=== PATIENT | female | born 1955 | race Caucasian/White ===

== ENCOUNTER 2017-03-13 21:25 | Observation (INO) ==
--- NOTE | 2017-03-13 21:34 | Emergency Department Note ---
Disposition Clinical Impression: Hyperglycemia, History of TIAs TIA (transient ischemic attack) Qualifiers: Transient cerebral ischemia type: unspecified Qualified Code(s): G45.9 - Transient cerebral ischemic attack, unspecified Disposition: Admitted As Inpatient Condition: Fair Neuro HPI - General Chief Complaint: ED Neuro Symptoms/Deficit Stated Complaint: poss stroke Source: patient Mode of arrival: EMS Limitations: no limitations Nursing Notes Reviewed: Yes Vital Signs Reviewed: Yes - History of Present Illness HPI Narrative: 62-year-old female history of TIA, hypertension, diabetes presents for evaluation of difficulty speaking possible stroke alert. Patient's last known well was 8:30 this evening verified by family, but the family states that she was having intermittent symptoms during the day. States that she was having difficult time speaking at bedtime. Family states that she kept repeating a certain date in her head. When asked specific questions would not answer questions appropriately. No other notable focal neurologic deficits. Family is unclear if the patient had aspirin earlier today. Patient does note a slight left temporal headache. Patient's symptoms appear to be improving. Denies any upper and lower leg weakness. Cranial 2 through 12 are intact. 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 Symptom Onset Unknown: No - Related Data Home Medications: Home Medications Medication Instructions Recorded Confirmed Alprazolam [Xanax 0.5 MG Tablet] 0.5 mg PO TID 06/26/16 06/26/16 Canagliflozin [Invokana] 100 mg PO DAILY 06/26/16 06/26/16 Clopidogrel [Plavix] 75 mg PO DAILY 06/26/16 06/26/16 Esomeprazole Magnesium [Nexium] 40 mg PO DAILY 06/26/16 06/26/16 Lisinopril [Zestril] 10 mg PO DAILY 06/26/16 06/26/16 Loratadine [Claritin] 10 mg PO DAILY 06/26/16 06/26/16 Metformin [Glucophage] 500 mg PO BIDWM 06/26/16 06/26/16 MetroNIDAZOLE [Metrogel] 1 appl TP DAILY 06/26/16 06/26/16 Paroxetine HCl 20 mg PO DAILY 06/26/16 06/26/16 Rosuvastatin [Crestor] 40 mg PO DAILY 06/26/16 06/26/16 Triamterene/HCTZ 37.5/25mg 1 each PO DAILY 06/26/16 06/26/16 [Dyazide] Allergies/Adverse Reactions: Allergies Allergy/AdvReac Type Severity Reaction Status Date / Time sulfacetamide Allergy Swelling Verified 03/13/17 21:29 [From Sulfamide] of the Eye All systems ED: reviewed and negative except as stated. Constitutional: Reports: as per HPI. Denies: fever Eyes: Reports: as per HPI ENT ED: Reports: as per HPI Cardiovascular: Reports: as per HPI. Denies: chest pain Respiratory: Reports: as per HPI. Denies: dyspnea Gastrointestinal: Reports: as per HPI. Denies: nausea, vomiting Genitourinary: Reports: as per HPI Musculoskeletal: Reports: as per HPI Integumentary: Reports: as per HPI Neurological: Reports: as per HPI, headache, confusion. 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 Absent: nystagmus - ENT ENT exam: normal exam, mucous membranes moist - Neck Neck exam: Present: normal inspection, trachea midline - Chest Chest inspection: Present: normal inspection, symmetric chest wall rise. Absent : tenderness - Respiratory Respiratory exam: Present: normal lung sounds bilaterally. Absent: respiratory distress - Cardiovascular Cardiovascular exam: Present: regular rate, normal rhythm - Abdominal Exam Abdominal exam: Present: soft, Non-Tender. Absent: distention, guarding, rebound - Extremities Exam Extremities exam: Present: normal inspection. Absent: pedal edema - Back Exam Back exam: Present: normal inspection - Neurological Exam Neurological exam: Present: alert, oriented X3, CN II-XII intact - Expanded Neurological Exam Patient oriented to: Present: person, place, time Speech: Present: fluid speech Cranial nerves: EOM function (II, III, IV, ): Normal, facial sensation (V): Normal, facial palsy (VII): Normal, spinal accessory function (XI): Normal, tongue deviation (XII): Normal Motor strength - LUE: 5/5 Motor strength - RUE: 5/5 Motor strength - LLE: 5/5 Motor strength - RLE: 5/5 Upper motor neuron exam: pronator drift: Absent bilaterally Sensory exam upper extremity: light touch: Normal Sensory exam lower extremity: light touch: Normal Coma Scale Eye Opening: Spontaneous Coma Scale Motor Response: Obeys Commands Coma Scale Verbal Response: Oriented Coma Scale Total: 15 - Skin Skin exam: Present: warm, dry, intact, normal color Course Course Narrative: Patient seen and examined initially upon arrival. Patient's initially patient last known well was 2030 this evening. However family states that have intermittent symptoms throughout the day. Family scribe symptoms that the patient cannot find her words are replacing certain words. Patient's symptoms appear to be resolving during the ED stay. Patient's NIH score is a 2 or 3 based on her expressive aphasia and describing the picture. Patient's grandmother 2-12 are intact. Stroke alert was initially called. Patient had a negative head CT. Spoke with neurology at [facility] states that the patient's last known well was not defined and is not a candidate for thrombolytics. This information was discussed to the patient as well as the patient's family at bedside. Patient will need a stroke workup. - Consultations Consultation #1: Spoke with Dr. Lozano, Neruologist at [facility]. States that the patient is not a tpa candidate since the patient's last known well is not well defined as the patient Time: 21:55 Vital Signs Temperature 97.8 F 03/13/17 21:29 Pulse Rate 80 03/13/17 21:29 Respiratory Rate 20 03/13/17 21:29 Blood Pressure 143/76 03/13/17 21:29 O2 Sat by Pulse Oximetry 100 03/13/17 21:29 Temperature 97.8 F 03/13/17 21:29 Pulse Rate 80 03/13/17 23:46 Respiratory Rate 20 03/13/17 23:46 Blood Pressure 130/80 03/13/17 23:46 O2 Sat by Pulse Oximetry 97 03/13/17 23:46 Oxygen Delivery Oxygen Delivery Room Air Neuro Symptoms/Deficit - MDM Narrative Medical decision making narrative: 62-year-old female presents for evaluation for a stroke alert. Patient's initial last and most thought to be around 2030. Family at bedside states that the patient's symptoms been intermittent throughout the day and there are described more as an expressive aphasia. Patient has a history of TIAs and carotid stenosis in the past. Patient on Plavix. Patient has no history of GI bleed or any active bleeding. Spoke with neurology at [facility] states the patient is not a TPA candidate due to time of onset. Patient's NIH score is low 2-3. This information was discussed with the patient's family as well as the patient at bedside. All questions were answered at that time. Patient will be admitted to the hospital service for further stroke evaluation. - Lab Data Lab results reviewed: Yes I reviewed the patient's lab results. Result diagrams: 03/13/17 21:40 03/13/17 21:40 Lab Results 03/13/17 03/13/17 03/13/17 Range/Units 21:30 21:40 21:40 WBC 10.9 (4.3-11.1) K/mcL RBC 4.82 (3.82-4.97) M/mcL Hgb 13.7 (11.5-15.4) g/dL Hct 41.7 (35.3-44.9) % MCV 86.5 (83.0-100.0) fL MCH 28.4 (28.0-33.3) pg MCHC 32.9 (31.6-35.5) g/dL RDW 12.9 (11.5-14.5) % Plt Count 337 (140-400) K/mcL MPV 10.2 (9.4-12.4) fL Immature Gran % 0.3 (0-4) % Seg Neutrophils % 58.8 % Lymphocytes % 29.5 % Monocytes % 9.2 % Eosinophils % 1.4 % Basophils % 0.8 % Neutrophils # 6.4 (1.6-8.9) K/mcL Lymphocytes # 3.2 (0.6-4.6) K/mcL Monocytes # 1.0 (0.0-1.3) K/mcL Eosinophils # 0.2 (0.0-0.6) K/mcL Basophils # 0.1 (0.0-0.2) K/mcL Immature Plt Fraction 4.9 (1.1-6.1) % PT 10.0 (9.4-12.1) Seconds INR 0.9 APTT 30.8 (26.0-36.0) Seconds Sodium (136-145) mEq/L Potassium (3.5-4.5) mEq/L Chloride (98-109) mEq/L Carbon Dioxide (19-29) mEq/L BUN (7-20) mg/dL Creatinine (0.57-1.11) mg/dL Est GFR ( Amer) (> 60) Est GFR (Non-Af Amer) (> 60) BUN/Creatinine Ratio (6-26) Glucose (70-99) mg/dL POC Glucose 123 H (58-89) Calculated Osmolality (280-300) Calcium (8.6-10.8) mg/dL Troponin I (0-0.03) ng/mL 03/13/17 03/13/17 Range/Units 21:40 21:40 WBC (4.3-11.1) K/mcL RBC (3.82-4.97) M/mcL Hgb (11.5-15.4) g/dL Hct (35.3-44.9) % MCV (83.0-100.0) fL MCH (28.0-33.3) pg MCHC (31.6-35.5) g/dL RDW (11.5-14.5) % Plt Count (140-400) K/mcL MPV (9.4-12.4) fL Immature Gran % (0-4) % Seg Neutrophils % % Lymphocytes % % Monocytes % % Eosinophils % % Basophils % % Neutrophils # (1.6-8.9) K/mcL Lymphocytes # (0.6-4.6) K/mcL Monocytes # (0.0-1.3) K/mcL Eosinophils # (0.0-0.6) K/mcL Basophils # (0.0-0.2) K/mcL Immature Plt Fraction (1.1-6.1) % PT (9.4-12.1) Seconds INR APTT (26.0-36.0) Seconds Sodium 139 (136-145) mEq/L Potassium 3.7 (3.5-4.5) mEq/L Chloride 104 (98-109) mEq/L Carbon Dioxide 28 (19-29) mEq/L BUN 15 (7-20) mg/dL Creatinine 0.78 (0.57-1.11) mg/dL Est GFR ( Amer) > 60 (> 60) Est GFR (Non-Af Amer) > 60 (> 60) BUN/Creatinine Ratio 19 (6-26) Glucose 95 (70-99) mg/dL POC Glucose (58-89) Calculated Osmolality 289 (280-300) Calcium 9.6 (8.6-10.8) mg/dL Troponin I 0.00 (0-0.03) ng/mL - Radiology Data Radiology results reviewed: Yes I reviewed the patient's radiology results. Head CT 03/13/17 21:31 IMPRESSION: No acute intracranial abnormality. Findings were discussed with Dr. Ruth Lemus of the [facility] emergency department at 9:48 pm on 03/13/2017. D/ / Erik Delgado MD / Erik Delgado MD Interpreting Provider: Erik Delgado MD - EKG Data EKG shows normal: sinus rhythm Rate: normal Rhythm: NSR [place]/QRS: normal P Waves: other (inversion in V1-V2) Interpretation: unchanged when compared to prior tracing (date) (2015), nonspecific ST-T wave changes NIH Stroke Scale - Level of Consciousness LOC: Alert - LOC Questions LOC Questions: Answers both correctly - LOC Commands LOC Commands: Performs both correctly - Best Gaze Best Gaze: Normal - Visual Visual: No visual loss - Facial Palsy Facial Palsy: Normal - Motor Arms Motor Arm-Left: No drift for 10 seconds Motor Arm-Right: No drift for 10 seconds - Motor Legs Motor Leg-Left: No drift for 5 seconds Motor Leg-Right: No drift for 5 seconds - Limb Ataxia Limb Ataxia: Absent of affected limb too weak to perform exam - Sensory Sensory: Normal - Best Language Best Language: Severe aphasia. Examiner CAN NOT identify pictures from response - Dysarthria Dysarthria: Normal - Extinction and Inattention Extinction and Inattention: Normal - NIHSS Total Score NIHSS Total Score: 2 TPA Checklist - Eligibilty for IV tPA 1. LKW equal to or less than 4.5 hours be before treatment: No 2. Clinical diagnosis of ischemic stroke causing deficit: Yes 3. Age 18 years or older: Yes - Contraindications 4. Evidence of intracranial hemorrhage on pretreatment CT: No 5. Presentation suggests subarachnoid hem, even if CT normal: No 6. CT shows multilobar infarction: No 7. History of intracranial hemorrhage: No 8. Known neoplasm, arteriovenous malformation, or aneurysm: No 9. Significant head trauma (w/ LOC) or CVA in last 3 months: No 10. Intracranial or intraspinal surgery in 3 months: No 11. Arterial puncture at non-compressable site/LP in 7 days: No 12. BP elevated (systolic > 185 or diastolic > 110): No 13. Abnormal Blood Glucose (<50 or >400mg/dl): No 14. Active internal bleeding: No 15. Known bleeding risk (including; not limited to 16-18): No 16. Heparin/argatroban/bivalirudin w/in 48hrs & PTT > normal: No 17. Platelet count less than 100,000/MM3: No 18. Current or recent use of anticoagualants (see protocol): No - Relative Contraindications 19. Only minor or rapidly improving stroke symptoms: Yes 20. Seizure at onset w/ postictal residual neuro impairments: No 21. : No 22. Current/recent use Effient (7 days) or Brilinta (5 days): No 23. Major surgery or serious truama in last 14 days: No 24. GI or urinary tract hemorrhage in last 21 days: No 25. Myocardial infarction within last 3 months: No - LKW: 3-4.5 hrs Add. Contraindications Patient/family understanding: The patient/family members have been counseled and understood the risk, benefit , and alternatives of treatment. Attestation Statement - Attestation Attestation: I examined this patient and my medical decision-making was reviewed with the SKIP TRACER/PA/Advanced Practice Nurse/Resident Physician. I agree with the documented findings, disposition and treatment plan as described except to the extent set forth below. Patient to the emergency department with a chief complaint of difficulty speaking. Patient has having trouble finding her words. Denies any weakness numbness or tingling anywhere. Symptoms were waxing and waning throughout the day. Stop bad 8:30 tonight. Improving but not completely resolved. On examination she is awake and alert pleasant conversant in bed. She is having difficulty saying her words. She keeps saying dog instead of Dr. Howe. Stroke alert was called. Discussed with neurology at [facility] does not feel she is a TPA candidate secondary to waxing and waning symptoms and unclear of when her last known well was. She is admitted to medicine for further stroke workup. 30 minutes of critical care exclusive of separately billable procedures.
[2017-03-13 21:47] LABS: Basophils # 0.1 K/mcL (0.0-0.2); Basophils % 0.8 %; Eosinophils # 0.2 K/mcL (0.0-0.6); Eosinophils % 1.4 %; Hematocrit 41.7 % (35.3-44.9); Hemoglobin 13.7 g/dL (11.5-15.4); Immature Granulocytes % 0.3 % (0-4); Immature Platelets 4.9 % (1.1-6.1); Lymphocytes # 3.2 K/mcL (0.6-4.6); Lymphocytes % 29.5 %; Mean Corpuscular HGB Conc 32.9 g/dL (31.6-35.5); Mean Corpuscular Hemoglobin 28.4 pg (28.0-33.3); Mean Corpuscular Volume 86.5 fL (83.0-100.0); Mean Platelet Volume 10.2 fL (9.4-12.4); Monocytes % 9.2 %; Neutrophils # 6.4 K/mcL (1.6-8.9); Red Blood Count 4.82 M/mcL (3.82-4.97); Red Cell Distribution Width 12.9 % (11.5-14.5); Segmented Neutrophils % 58.8 %
[2017-03-13 21:50] LABS: Platelet Count 337 K/mcL (140-400)
[2017-03-13 21:51] LABS: INR 0.9
[2017-03-13 21:53] LABS: Activated Partial Thrombo Time 30.8 Seconds (26.0-36.0)
[2017-03-13 21:57] LABS: BUN/Creatinine Ratio 19 (6-26); Blood Urea Nitrogen 15 mg/dL (7-20); Calcium 9.6 mg/dL (8.6-10.8); Carbon Dioxide 28 mEq/L (19-29); Chloride 104 mEq/L (98-109); Glucose 95 mg/dL (70-99); Osmolality,Calculated 289 (280-300); Potassium 3.7 mEq/L (3.5-4.5); Sodium 139 mEq/L (136-145); eGFR For African Americans > 60 (> 60); eGFR For Non-African Americans > 60 (> 60)
[2017-03-13] MEDS ORDERED: Ondansetron 4 MG/2 ML VIAL IV ONE (22:00)
[2017-03-13] MEDS ORDERED: Aspirin 81 MG TAB.CHEW PO ONE (22:07)
--- NOTE | 2017-03-13 23:22 | Event Note ---
Date of Encounter: 03/13/17 Time of Encounter: 23:20 1. Expressive aphasia worrisome for TIA/acuta CVA Continue aspirin and continue Plavix Order brain MRI, carotid ultrasound and echocardiogram Order neurology consult 2. History of left carotid stenosis 3. Diabetes type 2 not insulin-dependent, continue insulin sliding scale 4. Hypertension, allow permissive hypertension for now Note to follow written by STICKER ON Vaishali Najera The patient will be admitted as inpatient, expected statement to midnight. Full code. Time spent on this admission 40 minutes. High risk for CVA
[2017-03-13] MEDS ORDERED: Naloxone 0.4 MG/ML INJ IVP PRN (23:29)
[2017-03-13] MEDS ORDERED: Ondansetron 4 MG/2 ML VIAL IVP PRN (23:29)
[2017-03-13] MEDS ORDERED: Dextrose Gel 15 GM PO PRN ×2 (23:38)
[2017-03-13] MEDS ORDERED: D5% in Water 1,000 ML IVC PRN (23:38)
[2017-03-13] MEDS ORDERED: *HR* Dextrose 50 % in Water (Syg) 50 ML SYRINGE IVP PRN (23:38)
--- NOTE | 2017-03-13 23:51 | Internal Med History&Physical ---
Date of Encounter: 03/14/17 Time of Encounter: 23:51 Assessment and Plan (1) TIA (transient ischemic attack) Current visit: Yes Status: Suspected 1 patient presented with intermittent expressive aphasia that day worsening this evening approximately 8:30pm. Time she had presented to the ER symptoms were resolving. CT of head was negative lab work was unremarkable. We will continue with neuro checks 2 continuous cardiac monitoring 3 we will obtain cardiac echo 4 we will obtain MRI of head 5 carotid Dopplers- duplex 07/07- proximal ICA had 80-90% stenosis versus occlusion 6 we will continue with aspirin and Plavix statin 7 consult neurology 8 we will allow permissive hypertension 9 bedside swallow Qualifiers: Transient cerebral ischemia type: unspecified Qualified Code(s): G45.9 - Transient cerebral ischemic attack, unspecified (2) HTN (hypertension) Current visit: Yes Status: Chronic 1 presently controlled will continue with home medications, displaying some TIA sx we will allow permissive HTN Qualifiers: Hypertension type: essential hypertension Qualified Code(s): I10 - Essential (primary) hypertension (3) Diabetes Current visit: No Status: Chronic 1 she is on oral antidiabetic acuu check AC/HS with SSI insulin coverage Qualifiers: Diabetes mellitus type: type 2 Diabetes mellitus complication status: without complication Diabetes mellitus half-way insulin use: without half-way use Qualified Code(s): E11.9 - Type 2 diabetes mellitus without complications (4) DVT prophylaxis Current visit: No Status: Acute 1 KUSHAL arroyo Internal Medicine - H&P: HPI Chief complaint: TIA sx Admitted From: Emergency Dept Plans for Post Hospital Care: Home History of present illness: Ms. Clemens is a 62 year old female past medical history of hypertension diabetes TIA hyperlipidemia. According to family patient has been experiencing inability to find her words throughout the day, approximately around 8:30 family states that patient was experiencing difficulty speaking, using inappropriate words to describe items, garbled speech, repetitive speech, lipsmacking. Was no facial droop LOC,change in vision , difficulty swallowing or walking She presented to the ER with the above complaints. ER records indicated that patient's symptoms were improving upon arrival, there were no notable focal neurological deficits NIH was [address] was negative stroke alert was initiated in the ER physician did speak to neurology at [facility] who stated that the patient's last known well was not defined as not candidate for thrombolytics. She was admitted for further workup evaluation. Assessment patient is alert and appropriate following simple commands she does not appear to be in any distress. She complains of left temporal headache which is intermittent, throbbing 4/ 10. Cranial nerves II through XII are intact sinus rhythm on monitor she is hemodynamically stable I reveiwed this coding quality analyst with Dr Bernard who agrees with plan Past Med Surg Social Fam HX - Past Medical History Medical history: diabetes, hyperlipidemia, hypertension, other Psychiatric history: no psych history - Social History Smoking Status: Former smoker Smokeless Tobacco Status: No Alcohol use: none Drug use: none - Family History Mother Hx Family Cardiac Disorders: Yes Father Living Status: Hx Family Cancer: Yes Internal Medicine - H&P: Meds Alprazolam [Xanax 0.5 MG Tablet] 0.5 mg PO TID 06/26/16 [History] Canagliflozin [Invokana] 100 mg PO DAILY 06/26/16 [History] Clopidogrel [Plavix] 75 mg PO DAILY 06/26/16 [History] Esomeprazole Magnesium [Nexium] 40 mg PO DAILY 06/26/16 [History] Lisinopril [Zestril] 10 mg PO DAILY 06/26/16 [History] Loratadine [Claritin] 10 mg PO DAILY 06/26/16 [History] Metformin [Glucophage] 500 mg PO BIDWM 06/26/16 [History] MetroNIDAZOLE [Metrogel] 1 appl TP DAILY 06/26/16 [History] Paroxetine HCl 20 mg PO DAILY 06/26/16 [History] Rosuvastatin [Crestor] 40 mg PO DAILY 06/26/16 [History] Triamterene/HCTZ 37.5/25mg [Dyazide] 1 each PO DAILY 06/26/16 [History] Allergies sulfacetamide [From Sulfamide] Allergy (Verified 03/13/17 21:29) Swelling of the Eye All Systems PM: A 10-system review of systems was performed and is negative for pertinent findings except as documented above in the HPI. - Constitutional Constitutional: no chills, no fever(s), no night sweats - EENT Eyes: no change in vision, no discharge, no pain, no photophobia - Cardiovascular Cardiovascular ROS IM: no chest pain, no diaphoresis, no dyspnea, no lightheadedness, no palpitations, no syncope - Respiratory Respiratory: no cough, no dyspnea, no wheezing, no excessive phlegm production - Gastrointestinal Gastrointestinal: no abdominal pain, no diarrhea, no hematemesis, no hematochezia, no melena, no nausea, no vomiting - Genitourinary Genitourinary: no change in urinary stream, no dysuria, no flank pain, no hematuria - Musculoskeletal Musculoskeletal ROS IM: no numbness, no tingling - Neurological Neurological ROS: abnormal speech, confusion, headache(s) - Constitutional Vitals: Temp Pulse Resp BP Pulse Ox 97.8 F 80 20 130/80 97 03/13/17 21:29 03/13/17 23:46 03/13/17 23:46 03/13/17 23:46 03/13/17 23:46 General appearance: Present: A&O X 3, answers questions appropriately - Head Head exam: Present: atraumatic, normocephalic - Eye Eye exam: Present: EOMI, PERRL, conjuntiva pink, sclera anicteric Pupils: Present: PERRL - Neck Neck exam general surgery: Present: supple, trachea midline. Absent: lymphadenopathy - Respiratory Respiratory exam: Present: CTAB. Absent: accessory muscle use, rales, rhonchi, wheezes - Cardiovascular Cardiovascular exam: Present: RRR, +S1, +S2. Absent: diastolic murmur, gallop, rubs, systolic murmur - GI/Abdominal GI/Abdominal exam: Present: normal bowel sounds, soft, no peritoneal signs. Absent: distended, tenderness - Extremities Exam Extremities exam: Present: warm, radial pulses palpable and symetrical. Absent : calf tenderness, cyanotic, pedal edema - Neurological Exam Neurological exam: Present: CN II-XII intact, oriented X3, no focal deficits. Absent: pronater drift, facial droop, speech deficit - Expanded Neurological Exam Neuro motor strength exam: LUE: 5, RUE: 5, LLE: 5, RLE: 5 Coma Scale Eye Opening: Spontaneous Coma Scale Motor Response: Obeys Commands Coma Scale Verbal Response: Oriented Coma Scale Total: 15 - Skin Skin exam: Present: dry, intact Internal Med - H&P Results - Labs CBC & Chem 7: 03/13/17 21:40 03/13/17 21:40 - EKG Data EKG shows normal: sinus rhythm - EKG Data Prior EKG available for review: yes When compared to previous EKG: there is no significant change - Diagnostic Studies Other Images Additional comments: Head CT 03/13/17 21:31 IMPRESSION: No acute intracranial abnormality. Findings were discussed with Dr. Ruth Lemus of the [facility] emergency department at 9:48 pm on 03/13/2017. D/ / Erik Delgado MD / Erik Delgado MD Interpreting Provider: Erik Delgado MD
[2017-03-14 04:12] LABS: BUN/Creatinine Ratio 16 (6-26); Blood Urea Nitrogen 13 mg/dL (7-20); Calcium 9.1 mg/dL (8.6-10.8); Carbon Dioxide 22 mEq/L (19-29); Chloride 104 mEq/L (98-109); Chol/HDL Ratio 3.2 (0-4.9); Cholesterol 180 mg/dL (< 200); Glucose 118 mg/dL (70-99); HDL Cholesterol 56 mg/dL (40-59); LDL Cholesterol,Calculated 109 mg/dL (0-99); Osmolality,Calculated 287 (280-300); Potassium 3.8 mEq/L (3.5-4.5); Sodium 138 mEq/L (136-145); Triglycerides 74 mg/dL (< 150); eGFR For African Americans > 60 (> 60); eGFR For Non-African Americans > 60 (> 60)
[2017-03-14] MEDS ORDERED: Aspirin Enteric Coated 81 MG Tablet PO SCH (09:00)
[2017-03-14] MEDS: Insulin LISPRO 300 UNITS/3 ML VIAL SQ SCH ×4 (09:31→21:22)
--- NOTE | 2017-03-14 10:38 | Internal Med Progress Note ---
<Isabel Smith - Last Filed: 03/14/17 10:36> Date of Encounter: 03/14/17 Time of Encounter: 09:30 - Assessment and plan (1) TIA (transient ischemic attack) Current Visit: Yes Status: Acute Assessment and plan: Probable crescendo TIA from carotid artery disease. Symptoms have since resolved. 06/2016 Cath report Left ICA 100% stenosis. 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 Not amenable to surgical intervention. Patient was taking plavix prior to admission. Had Plavix and ASA this AM. Discussed with neurologist Dr. Reeves. Recommend anticoagulation, to obtain echo and brain MRI. Appreciate neuro recs. SW consult for xarelto costs. Qualifiers: Transient cerebral ischemia type: unspecified Qualified Code(s): G45.9 - Transient cerebral ischemic attack, unspecified (2) Carotid arterial disease Current Visit: Yes Status: Chronic Assessment and plan: Per above. Cont Statin. Qualifiers: Laterality: left Qualified Code(s): I77.9 - Disorder of arteries and arterioles, unspecified (3) HTN (hypertension) Current Visit: Yes Status: Chronic Assessment and plan: Allow for permissive HTN Qualifiers: Hypertension type: essential hypertension Qualified Code(s): I10 - Essential (primary) hypertension (4) Diabetes Current Visit: Yes Status: Chronic Assessment and plan: Dec 2016 A1c 6.1 Cont accuchecks and SSI Qualifiers: Diabetes mellitus type: type 2 Diabetes mellitus complication status: without complication Diabetes mellitus intermodal dispatcher insulin use: without chcf use Qualified Code(s): E11.9 - Type 2 diabetes mellitus without complications (5) DVT prophylaxis Current Visit: Yes Status: Acute Assessment and plan: Will start xarelto this evening. - Subjective Interval history: Pt seen/eval, family members at bedside, patient consents to discussion of medical issues with all present. Affirms events prompting hospitalization. Notes that expressive aphasia is improved, denies any focal weakness or loss of sensation. Denies fever, chills, chest pain/palpitations, dyspnea, nvd. Has prior cath disclosing Left ICA 100% stenosis, Right Vertebral Artery 100% stenosis. - Constitutional Vitals: Temp Pulse Resp BP Pulse Ox 98.2 F 76 17 125/51 96 03/14/17 07:00 03/14/17 07:00 03/14/17 07:00 03/14/17 07:00 03/14/17 07:00 General appearance: Present: A&O X 3, answers questions appropriately - Head Head exam: Present: atraumatic, normocephalic - Eye Eye exam: Present: EOMI, sclera anicteric - ENT ENT exam: Present: mucous membranes moist - Neck Neck exam general surgery: Present: supple, trachea midline. Absent: nuchal rigidity - Respiratory Respiratory exam: Present: CTAB. Absent: rhonchi - Cardiovascular Cardiovascular exam: Present: +S1, +S2. Absent: JVD Additional comments: Left carotid bruit - GI/Abdominal GI/Abdominal exam: Present: soft, no peritoneal signs. Absent: tenderness - Extremities Exam Extremities exam: Present: warm, radial pulses palpable and symetrical. Absent : pedal edema - Neurological Exam Neurological exam: Present: CN II-XII intact, reflexes normal, no focal deficits , strengths equal and symetr throughout. Absent: pronater drift, facial droop, speech deficit Internal Medicine: Result - Labs CBC & Chem 7: 03/13/17 21:40 03/14/17 03:45 Labs: BMP 03/14/17 03:45 Sodium 138 Potassium 3.8 Chloride 104 Carbon Dioxide 22 BUN 13 Creatinine 0.79 Glucose 118 H Calcium 9.1 Cardiac Enzymes 03/14/17 Range/Units 03:45 Troponin I 0.00 (0-0.03) ng/mL - ABG Interpretation ABG results: PT/INR, D-dimer PT 10.0 Seconds (9.4-12.1) 03/13/17 21:40 - VTE Documentation of Mechanical Device: Graduated compression elastic hosiery Consult Discharge Plan - Plan Referrals: Murali Ellis MD [Primary Care Provider] - <Teo Manuel - Last Filed: 03/14/17 18:06> Date of Encounter: 03/14/17 - Assessment and plan (1) TIA (transient ischemic attack) Current Visit: Yes Status: Acute Qualifiers: Transient cerebral ischemia type: carotid artery syndrome (hemispheric) Qualified Code(s): G45.1 - Carotid artery syndrome (hemispheric) (2) Carotid arterial disease Current Visit: Yes Status: Chronic Qualifiers: Laterality: left Qualified Code(s): I77.9 - Disorder of arteries and arterioles, unspecified (3) Diabetes Current Visit: Yes Status: Chronic Qualifiers: Diabetes mellitus type: type 2 Diabetes mellitus complication status: without complication Diabetes mellitus intermodal dispatcher insulin use: without chcf use Qualified Code(s): E11.9 - Type 2 diabetes mellitus without complications (4) HTN (hypertension) Current Visit: Yes Status: Chronic Qualifiers: Hypertension type: essential hypertension Qualified Code(s): I10 - Essential (primary) hypertension - Constitutional Vitals: Temp Pulse Resp BP Pulse Ox 97.8 F 89 18 126/77 98 03/14/17 15:00 03/14/17 15:00 03/14/17 15:00 03/14/17 15:00 03/14/17 15:00 Internal Medicine: Result - Labs CBC & Chem 7: 03/13/17 21:40 03/14/17 03:45 Labs: BMP 03/14/17 03:45 Sodium 138 Potassium 3.8 Chloride 104 Carbon Dioxide 22 BUN 13 Creatinine 0.79 Glucose 118 H Calcium 9.1 Cardiac Enzymes 03/14/17 03/14/17 Range/Units 03:45 08:39 Troponin I 0.00 0.00 (0-0.03) ng/mL - ABG Interpretation ABG results: PT/INR, D-dimer PT 10.0 Seconds (9.4-12.1) 03/13/17 21:40 - Attending Attestation I examined this patient and my medical decision-making was reviewed with the Resident Physician on 03/14/17. I agree with the documented findings, disposition and treatment plan as described except to the extent set forth below. Ms Clemens is currently in observation due to TIA. She is high risk due to potential for worsening neurologic status. Ms. Clemens is almost to baseline. She has no new symptoms. Her daughter and sister are at bedside and understand situation. Exam Alert. Comfortable Heart reg No focal deficit I/P 1. TIA 2. Occluded carotid and vertebral Further diagnoses and plan as above.
[2017-03-14] MEDS: *HR* Rivaroxaban 10 MG TABLET PO SCH (16:44)
[2017-03-14] MEDS: ALPRAZolam 0.5 MG TABLET PO SCH ×2 (17:17→21:39)
--- NOTE | 2017-03-14 19:45 | ECHO - Doppler Report ---
Echo with Saline Contrast Name: Pallavi Clemens Date of Study: 03/14/2017 Date: 1955 Ht: 61.0 in Medical Record#: [id number] Age: 62 Wt: 206.0 lb Gender: Female BSA: 1.91 Order #: [id number] Location: [facility] Room #: 2NE31 Reading Physician: Neville Bajwa MD, [facility] Staff Readiness Officer: Ellyn Alvarez RVT Ordering Physician: Vaishali Najera CNP Primary Physician: Murali Ellis MD Indications: Transient Ischemic Attack Impressions: No evidence of PFO by color Doppler or agitated saline LVEF is probably normal No significant valvular dysfunction. Left Ventricular Wall Motion: Rest Echo Findings All wall segments showed normal motion. Findings: Left Atrium * Normal left atrial size. Mitral Valve * Normal mitral valve structure and function. Interatrial Septum * No evidence of PFO by color Doppler or agitated saline Pericardium * The pericardium appears normal. ECG Findings * Normal sinus rhythm. Left Ventricle * LVEF is probably normal * Indeterminate diastolic function. Right Atrium * Right atrium is not well visualized. Aortic Valve * Aortic valve not well visualized. * No aortic stenosis. * No aortic regurgitation. Tricuspid Valve * Trace tricuspid regurgitation. * No tricuspid stenosis. * Unable to estimate RVSP due to lack of TR jet. Pulmonic Valve * Pulmonic valve is not well visualized. * No pulmonic stenosis. * No pulmonic regurgitation. IVC * The IVC is not well evaluated. History Hypertension Diabetes Hypercholesteremia Family History of CAD Measurements: BP: 125/ 51 2D Normal Values RVIDd: 2.10 cm <2.7 cm IVSd: 1.00 cm 0.6 - 1.0 cm LVIDd: 4.50 cm 3.7 - 5.6 cm LVPWd: 1.30 cm 0.6 - 1.1 cm LVIDs: 3.90 cm 1.5 - 3.6 cm AO: 2.30 cm < 4.0 cm LA: 3.70 cm 2.0 - 4.0cm %FS: 13.30 cm >25 % LA volume: 43 Mitral Valve Peak E:.97 m/sec Peak A:.87 m/sec E/A Ratio:1.1 Peak E' Lat Shubham:9.94 cm/s Peak E' Med Shubham:6.92 cm/s E/E' Lat Ratio:9.8 E/E' Med Ratio:14 Tricuspid Valve TV Regurg Peak Grad: 8.00mmHg TV Regurg Peak Shubham: 1.40m/sec Updated by Neville Bajwa MD, [facility] on 03/14/2017 7:40:20 PM electronically signed on 03/14/2017 7:41:53 PM with status of Final Wall Motion Ennis: 1=Normal, 2=Hypokinesis, 3=Akinesis, 4=Dyskinesis, 5=Aneurysmal, 6=Hyperkinetic, X=Not Visualized (Blank)=Missing
--- NOTE | 2017-03-14 20:44 | Electrocardiograph Report ---
[place] [id number] Test Date: 2017-03-13 Pat Name: Pallavi Clemens Department: 102 Room: [facility] Gender: F Orthopedic Specialist: : 1955 Requested By: Moses Salazar Order Number: [id number] Reading MD: Neville Bajwa MD Measurements Intervals Enders Rate: 72 P: 40 IL: 161 QRS: 16 QRSD: 79 T: 47 QT: 344 QTc: 369 Interpretive Statements SINUS RHYTHM LEFT ATRIAL ENLARGEMENT Electronically Signed On 03-14-2017 20:43:19 EDT by Neville Bajwa MD
[2017-03-15 05:42] LABS: Hemoglobin A1C 6.2 %
[2017-03-15 05:46] LABS: BUN/Creatinine Ratio 24 (6-26); Blood Urea Nitrogen 19 mg/dL (7-20); Carbon Dioxide 25 mEq/L (19-29); Chloride 103 mEq/L (98-109); Glucose 120 mg/dL (70-99); Potassium 4.1 mEq/L (3.5-4.5); Sodium 137 mEq/L (136-145); eGFR For African Americans > 60 (> 60); eGFR For Non-African Americans > 60 (> 60)
[2017-03-15 05:47] LABS: Calcium 8.9 mg/dL (8.6-10.8); Osmolality,Calculated 287 (280-300)
--- NOTE | 2017-03-15 08:52 | Neurology - Consult Note ---
<Reza Callejas - Last Filed: 03/15/17 10:03> Date of Encounter: 03/15/17 Time of Encounter: 08:52 Assessment and Plan (1) Expressive aphasia Current Visit: Yes Status: Acute CT scan of the head without contrast showed no acute process, carotid angiography from June 2016 showed left internal carotid and right subclavian artery chronic occlusion and innominate artery showed borderline significant disease, echo this time showed no evidence of PFO, left ventricular ejection fraction probable normal and no significant valvular dysfunction. Patient states that she used to take aspirin and it was switched to Plavix at some point , patient does not remember the reason, currently patient is on xarelto for failed plavix/aspirin therapy in the past for recurrent TIA symptoms, patient is not a good surgical candidate for CEA due to total occlusion of left ICA, MRI is pending at this time, currently patient has no focal neurological symptoms, recommend continuation of po anticoagulation and statin therapy at this time and will make further recommendations after reviewing the MRI. History of Present Illness Chief complaint: Expressive aphasia HPI: Ms. Clemens is a 62 year old female with history of hypertension, diabetes type 2, TIA, obesity and hyperlipidemia who was brought from her home to the ER for chief complaint of expressive aphasia. Stroke alert was initiated in the ER and neurologist from [facility] recommended no thrombolytic treatment due to her unknown last well-known time. Patient states that she had at least 10 TIA symptoms in the past but she did not seek medical treatment and this is a first time she was admitted to the hospital for possible TIA symptom. Previous symptoms include tingling/numbness of right upper extremity and transient left monocular blindness. CT scan of the head without contrast in the ER showed no acute process, carotid angiography from June 2016 showed left internal carotid and right subclavian artery chronic occlusion and innominate artery showed borderline significant disease, echo this time showed no evidence of PFO , left ventricular ejection fraction probable normal and no significant valvular dysfunction. Patient states that her expressive aphasia resolved on the day of admission, currently she denies headache, visual changes, facial droop, tingling/numbness/weakness of upper/lower extremities or urinary/bowel incontinence. Past Med Surg Social Fam HX - Past Medical History Medical history: diabetes, hyperlipidemia, hypertension, other Psychiatric history: no psych history - Social History Smoking Status: Former smoker Smokeless Tobacco Status: No Alcohol use: none Drug use: none - Family History Mother Hx Family Cardiac Disorders: Yes Father Living Status: Age at : 52 Cause of : Liver cancer Hx Family Cardiac Disorders: No Hx Family Respiratory Disorders: No Hx Family Cancer: Yes (Liver, Stomach) Hx Family GI Disorders: Yes (Ulcers) Medications and Allergies Alprazolam [Xanax 0.5 MG Tablet] 0.5 mg PO TID 06/26/16 [History] Canagliflozin [Invokana] 100 mg PO DAILY 06/26/16 [History] Clopidogrel [Plavix] 75 mg PO DAILY 06/26/16 [History] Esomeprazole Magnesium [Nexium] 40 mg PO DAILY 06/26/16 [History] Lisinopril [Zestril] 10 mg PO DAILY 06/26/16 [History] Loratadine [Claritin] 10 mg PO DAILY 06/26/16 [History] Metformin [Glucophage] 500 mg PO BIDWM 06/26/16 [History] Paroxetine HCl 20 mg PO DAILY 06/26/16 [History] Rosuvastatin [Crestor] 40 mg PO DAILY 06/26/16 [History] Triamterene/HCTZ 37.5/25mg [Dyazide] 1 tab PO DAILY 06/26/16 [History] Rivaroxaban [Xarelto] 20 mg PO 1700 #30 tablet 03/15/17 [Rx] Rivaroxaban [Xarelto] 20 mg PO DAILY #30 tablet 03/15/17 [Rx] Allergies sulfacetamide [From Sulfamide] Allergy (Verified 03/13/17 21:29) Swelling of the Eye All Systems: A 10-system review of systems was performed and is negative for pertinent findings except as documented above in the HPI. Review of Systems: Patient states that her expressive aphasia resolved on the day of admission, currently she denies headache, visual changes, facial droop, tingling/numbness/ weakness of upper/lower extremities or urinary/bowel incontinence. Physical Examination - Vital Signs Vital Signs: Initial Vital Signs Temp Pulse Resp BP Pulse Ox 97.8 F 80 20 143/76 100 03/13/17 21:29 03/13/17 21:29 03/13/17 21:29 03/13/17 21:29 03/13/17 21:29 - Constitutional General appearance: comfortable - Neurologic Sensorimotor examination: intact Detailed motor examination: grossly full strength in all extremities, full strength in all major muscle groups Motor examination - right side: 5/5: deltoids, biceps, triceps, wrist flexion, wrist extension, captain fire prevention bureau, hip flexors, quadriceps, plantarflexion Motor examination - left side: 5/5: deltoids, biceps, triceps, wrist flexion, wrist extension, hip flexors, captain fire prevention bureau, quadriceps, plantarflexion Detailed sensory examination: intact Reflex and gait examination: intact Reflexes: Biceps: 2+, Triceps: 2+, Brachioradialis: 2+, Patella: 2+, Achilles: 2 + Mental Status Examination: awake, alert, oriented to person, oriented to place, oriented to time, follows commands appropriately, answers questions appropriately, no agnosia, no aphasia, no aproxia Cranial nerve examination: PERRL, EOMI, visual hauser intact, sensory to face intact, mastication intact, no facial asymmetry is present, no dysarthria, hearing is intact symmetrically, soft palate elevates bilaterally upon phonation , tongue protrudes midline, no atrophy or facial fasiculations present Cerebellar examination: no dysmetria, no truncal ataxia, no difficulty with rapid alternating movements Results - Laboratory Findings CBC and BMP: 03/13/17 21:40 03/15/17 04:34 Abnormal lab findings: Abnormal lab results Glucose 120 mg/dL (70-99) H 03/15/17 04:34 POC Glucose 123 (58-89) H 03/13/17 21:30 Hemoglobin A1c 6.2 % (-5.6) H 03/15/17 04:34 LDL Cholesterol, Calc 109 mg/dL (0-99) H 03/14/17 03:45 Consult Discharge Plan - Plan Referrals: Murali Ellis MD [Primary Care Provider] - Prescriptions: Rivaroxaban [Xarelto] 20 mg PO DAILY #30 tablet Rivaroxaban [Xarelto] 20 mg PO 1700 #30 tablet <Michael Reeves - Last Filed: 03/15/17 16:20> Date of Encounter: 03/15/17 Time of Encounter: 16:09 Assessment and Plan (1) Expressive aphasia Current Visit: Yes Status: Acute At this juncture the differential diagnosis might include possible transient ischemic attack involving the left cerebral hemisphere, rule out focal seizure, rule out transient global amnesia, rule out complicated migraine, rule out anxiety related. Unfortunately she is not a surgical candidate for any of the known arterial occlusions. She was already taking aspirin and switch to Plavix , and has now failed Plavix. She has already had echocardiograms. So at this point I would simply like to obtain an MRI scan of the brain with diffusion to assess for evidence of repeated cerebral infarctions or evidence of chronic ischemic change particularly involving the left cerebral hemisphere. Certainly in the event that she is experiencing focal seizures would wish to rule out the possibility of a neoplasm. Ultimately this might also have been an anxiety/ stress induced event as she was involved in training for a new job and had also been having a somewhat heated exchange between she and her daughter. Certainly there is a relative indication for anticoagulation as she has known intracranial occlusion and was a heavy smoker for most of her life. Further recommendations will be made pending outcome of the MRI and EEG studies. History of Present Illness HPI: Ms. Clemens is a 62 year old female who was seen for neurologic evaluation secondary to rule out TIA. The patient was seen in this case was discussed with Dr. Callejas. Patient was examined independently. Apparently she is under gone quite of distress or lately. She has been training for a new job at the [employer]. In addition she had a recent blowup with her adopted 15-year-old daughter about "MySupportAssistant". Apparently normal head elected to turn off the [employer] service and her adopted daughter was not happy about this. She also reports a fairly intense headache at the time. She is apparently awake and alert during it but was somewhat confused. Her daughter also mentions lip "smacking". There was no actual generalized tonic clonic seizure activity. I am told that the entire episode lasted for about an hour. 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 It is my understanding that these occlusions have been identified at least going back to 2013. MRI scan of the brain is yet pending. She has been stable without recurrent neurologic events since admission. All Systems: A 10-system review of systems was performed and is negative for pertinent findings except as documented above in the HPI. Review of Systems: 10 point review of systems is consistent with a history of present illness and otherwise negative. Physical Examination - Vital Signs Vital Signs: Initial Vital Signs Temp Pulse Resp BP Pulse Ox 97.8 F 80 20 143/76 100 04/22/17 21:29 03/13/17 21:29 03/13/17 21:29 03/13/17 21:29 03/13/17 21:29 - Neurologic Detailed motor examination: full strength in all major muscle groups Motor examination - right side: 03/26: deltoids, biceps, triceps, wrist flexion, wrist extension, captain fire prevention bureau, hip flexors, tibialis Anterior, quadriceps, toe extension (EHL), plantarflexion Motor examination - left side: 03/26: deltoids, biceps, triceps, wrist flexion, wrist extension, hip flexors, captain fire prevention bureau, quadriceps, tibialis Anterior, toe extension (EHL), plantarflexion Mental Status Examination: awake, alert, oriented to person, oriented to place, oriented to time, follows commands appropriately, answers questions appropriately, no agnosia, no aphasia, no aproxia Cranial nerve examination: PERRL, EOMI, visual hauser intact, corneal reflexes brisk symmetrically, sensory to face intact, mastication intact, no facial asymmetry is present, no dysarthria, hearing is intact symmetrically, soft palate elevates bilaterally upon phonation, gag reflex intact, flexes SCM and trapezius muscles symmetrically with full power, tongue protrudes midline, no atrophy or facial fasiculations present Cerebellar examination: no dysmetria, performs finger to nose and heel to gabriel symmetrically without ataxia, no gait ataxia, no truncal ataxia, no difficulty with rapid alternating movements Results - Laboratory Findings CBC and BMP: 03/13/17 21:40 03/15/17 04:34 Abnormal lab findings: Abnormal lab results Glucose 120 mg/dL (70-99) H 03/15/17 04:34 POC Glucose 123 (58-89) H 03/13/17 21:30 Hemoglobin A1c 6.2 % (-5.6) H 03/15/17 04:34 LDL Cholesterol, Calc 109 mg/dL (0-99) H 03/14/17 03:45
[2017-03-15] MEDS: ALPRAZolam 0.5 MG TABLET PO SCH ×3 (09:00→20:17)
--- NOTE | 2017-03-15 10:21 | Discharge Summary ---
Date of Encounter: 03/15/17 Time of Encounter: 10:00 - Discharge Diagnosis (1) TIA (transient ischemic attack) Priority: Primary Status: Acute Qualifiers: Transient cerebral ischemia type: carotid artery syndrome (hemispheric) Qualified Code(s): G45.1 - Carotid artery syndrome (hemispheric) (2) Carotid arterial disease Priority: Primary Status: Chronic Qualifiers: Laterality: left Qualified Code(s): I77.9 - Disorder of arteries and arterioles, unspecified (3) HTN (hypertension) Priority: Secondary Status: Chronic Qualifiers: Hypertension type: essential hypertension Qualified Code(s): I10 - Essential (primary) hypertension (4) Diabetes Priority: Secondary Status: Chronic Qualifiers: Diabetes mellitus type: type 2 Diabetes mellitus complication status: without complication 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[place] use Qualified Code(s): E11.9 - Type 2 diabetes mellitus without complications (5) DVT prophylaxis Priority: Secondary Status: Acute - Discharge Medications Prescriptions: Rivaroxaban [Xarelto] 20 mg PO DAILY #30 tablet Rivaroxaban [Xarelto] 20 mg PO 1700 #30 tablet Home Medications: Alprazolam [Xanax 0.5 MG Tablet] 0.5 mg PO TID 06/26/16 [History] Canagliflozin [Invokana] 100 mg PO DAILY 06/26/16 [History] Clopidogrel [Plavix] 75 mg PO DAILY 06/26/16 [History] Esomeprazole Magnesium [Nexium] 40 mg PO DAILY 06/26/16 [History] Lisinopril [Zestril] 10 mg PO DAILY 06/26/16 [History] Loratadine [Claritin] 10 mg PO DAILY 06/26/16 [History] Metformin [Glucophage] 500 mg PO BIDWM 06/26/16 [History] Paroxetine HCl 20 mg PO DAILY 06/26/16 [History] Rosuvastatin [Crestor] 40 mg PO DAILY 06/26/16 [History] Triamterene/HCTZ 37.5/25mg [Dyazide] 1 tab PO DAILY 06/26/16 [History] Rivaroxaban [Xarelto] 20 mg PO 1700 #30 tablet 03/15/17 [Rx] Rivaroxaban [Xarelto] 20 mg PO DAILY #30 tablet 03/15/17 [Rx] Allergies/Adverse Reactions: Allergies sulfacetamide [From Sulfamide] Allergy (Verified 03/13/17 21:29) Swelling of the Eye Procedures/tests Complete & Pending: Procedures Performed prior 72 hours Category Date Time Status MR head/brain wo con [MR] Routine MRI 03/13/17 23:37 Ordered EV echocardiogram Routine Y 03/14/17 23:36 Completed Date of admission: 03/13/17 23:29 Primary care physician: Murali Ellis MD Consults: 03/13/17 23:37 Consult to Neurology [CONS] Routine Consulting Provider: Neurology [facility] Reason for Consult: expressive aphasia Time Notified: 23:38 Call Completed: No 03/14/17 01:40 Consult to Pastoral Services [CONS] Routine Comment: 03/14/17 10:36 Consult to Route Inspector [CONS] Routine Reason for Consult: Xarelto costs Discharging clinician: Teo Manuel Anticipated date of discharge: 03/15/17 - Patient Status Disposition: Home, Self-Care Condition: Fair Functional capacity at discharge: independent ambulation Overall status at discharge: patient is progressing back to baseline - Discharge Instructions Follow Up With: Murali Ellis MD [Primary Care Provider] - - Diet and Activity Activity: return to work once cleared by your PCP/specialist Diet: diabetic diet Hospital course: Ms. Clemens is a 62 year old female Patient would present to [facility] with chief concern: expressive aphasia - difficulty finding words ED eval: NIH 2, Head CT negative. Concern for TIA, prompted [facility] tele-neurology - given resolving symptoms was not a tPA candidate. Comorbidities include: diabetes, hyperlipidemia, hypertension, Hospital course: Initial impression TIA. Patient would undergo treatment with Aspirin, Plavix, Statin. 06/2016 Cath report Left ICA 100% stenosis. 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 Not amenable to surgical intervention. Imaging studies disclosed: Head CT 03/13/17 21:31 IMPRESSION: No acute intracranial abnormality. Neurology consult for TIA suspect crescendo TIA from Left Carotid Artery Disease. Discussed with neurologist Dr. Reeves. Recommend anticoagulation, to obtain echo and brain MRI. consult for xarelto costs. Xarelto indicated for stroke prophylaxis, having failed aspirin and plavix. Echo disclosed: LVEF probably normal, no significant valvular dysfunction, no evidence of PFO by color Doppler or agitated saline. Brain MRI: At time of discharge, patient was clinically improved, hemodynamically stable, progressing to baseline, and agreeable with plan of care. Patient was advised to seek immediate medical attention for any new or worsening symptoms including but not limited to fever, chills, chest pain, chest pressure, dyspnea, cough, abdominal pain, nausea, vomiting, diarrhea, bloody stool, urine and the patient voiced understanding. Patient will follow-up with primary care physician: Dr. Murali Ellis - Time Spent with Patient Total time spent providing and/or coordinating discharge services: Greater than 30 minutes - Constitutional Vitals: Temp Pulse Resp BP Pulse Ox 97.8 F 67 18 122/76 95 03/15/17 07:40 03/15/17 07:40 03/15/17 07:40 03/15/17 04:38 03/15/17 07:40 General appearance: Present: A&O X 3, answers questions appropriately - Head Head exam: Present: atraumatic, normocephalic - Eye Eye exam: Present: EOMI, sclera anicteric - ENT ENT exam: Present: mucous membranes moist - Neck Neck exam general surgery: Present: supple, trachea midline - Respiratory Respiratory exam: Present: CTAB. Absent: rhonchi, wheezes - Cardiovascular Cardiovascular exam: Present: +S1, +S2. Absent: irregular rhythm, JVD - GI/Abdominal GI/Abdominal exam: Present: soft, no peritoneal signs. Absent: tenderness - Extremities Exam Extremities exam: Present: warm, radial pulses palpable and symetrical - Neurological Exam Neurological exam: Present: CN II-XII intact, no focal deficits, strengths equal and symetr throughout. Absent: pronater drift, facial droop, speech deficit - VTE Documentation of Mechanical Device: Graduated compression elastic hosiery
[2017-03-15] MEDS: Insulin LISPRO 300 UNITS/3 ML VIAL SQ SCH ×4 (11:47→20:18)
--- NOTE | 2017-03-15 16:45 | Internal Med Progress Note ---
<Isabel Smith - Last Filed: 03/15/17 16:45> Date of Encounter: 03/15/17 Time of Encounter: 16:40 - Assessment and plan (1) TIA (transient ischemic attack) Current Visit: Yes Status: Acute Assessment and plan: Probable crescendo TIA from carotid artery disease. Symptoms have since resolved. 06/2016 Cath report Left ICA 100% stenosis. 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 Not amenable to surgical intervention. Patient was taking plavix prior to admission, failed plavix. 03/14 Started on Xarelto SW consult for xarelto costs. Xarelto indicated for stroke prophylaxis, having failed aspirin and plavix. Xarelto approved. Echo disclosed: LVEF probably normal, no significant valvular dysfunction, no evidence of PFO by color Doppler or agitated saline. Await Brain MRI Discussed with neurologist Dr. Reeves. Anticipate EEG. Appreciate neuro recs. Qualifiers: Transient cerebral ischemia type: carotid artery syndrome (hemispheric) Qualified Code(s): G45.1 - Carotid artery syndrome (hemispheric) (2) Carotid arterial disease Current Visit: Yes Status: Chronic Assessment and plan: Per above. Cont Statin. Qualifiers: Laterality: left Qualified Code(s): I77.9 - Disorder of arteries and arterioles, unspecified (3) HTN (hypertension) Current Visit: Yes Status: Chronic Assessment and plan: Allow for permissive HTN Qualifiers: Hypertension type: essential hypertension Qualified Code(s): I10 - Essential (primary) hypertension (4) Diabetes Current Visit: Yes Status: Chronic Assessment and plan: Dec 2016 A1c 6.1 Cont accuchecks and SSI 03/15/17 A1c 6.2, well controlled. 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 - Subjective Interval history: Pt seen/eval, updated on plan of care. Neurology service would see her as well. She is anticipating Brain MRI, then EEG. She denies any difficulty with finding words or expressing at this time. No focal weakness, palpitations, chest pain, fever, chills. - Constitutional Vitals: Temp Pulse Resp BP Pulse Ox 98.1 F 80 18 122/67 97 03/15/17 11:23 03/15/17 11:23 03/15/17 11:23 03/15/17 11:23 03/15/17 11:23 General appearance: Present: A&O X 3, answers questions appropriately - Head Head exam: Present: atraumatic, normocephalic - Eye Eye exam: Present: EOMI, sclera anicteric - ENT ENT exam: Present: mucous membranes moist - Neck Neck exam general surgery: Present: supple, trachea midline - Respiratory Respiratory exam: Present: CTAB. Absent: rhonchi, wheezes - Cardiovascular Cardiovascular exam: Present: +S1, +S2. Absent: JVD - GI/Abdominal GI/Abdominal exam: Present: soft, no peritoneal signs. Absent: tenderness - Extremities Exam Extremities exam: Present: warm, radial pulses palpable and symetrical. Absent : pedal edema - Neurological Exam Neurological exam: Present: CN II-XII intact, no focal deficits, strengths equal and symetr throughout. Absent: facial droop, speech deficit Internal Medicine: Result - Labs CBC & Chem 7: 03/13/17 21:40 03/15/17 04:34 Labs: BMP 03/15/17 04:34 Sodium 137 Potassium 4.1 Chloride 103 Carbon Dioxide 25 BUN 19 Creatinine 0.79 Glucose 120 H Calcium 8.9 - ABG Interpretation ABG results: PT/INR, D-dimer PT 10.0 Seconds (9.4-12.1) 03/13/17 21:40 - VTE Documentation of Mechanical Device: Graduated compression elastic hosiery Consult Discharge Plan - Plan Referrals: Murali Ellis MD [Primary Care Provider] - Prescriptions: Rivaroxaban [Xarelto] 20 mg PO DAILY #30 tablet Rivaroxaban [Xarelto] 20 mg PO 1700 #30 tablet <Teo Manuel - Last Filed: 03/15/17 19:46> Date of Encounter: 03/15/17 - Assessment and plan (1) TIA (transient ischemic attack) Current Visit: Yes Status: Acute Qualifiers: Transient cerebral ischemia type: carotid artery syndrome (hemispheric) Qualified Code(s): G45.1 - Carotid artery syndrome (hemispheric) (2) Carotid arterial disease Current Visit: Yes Status: Chronic Qualifiers: Laterality: left Qualified Code(s): I77.9 - Disorder of arteries and arterioles, unspecified (3) Diabetes Current Visit: Yes Status: Chronic Qualifiers: Diabetes mellitus type: type 2 Diabetes mellitus complication status: without complication 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 use Qualified Code(s): E11.9 - Type 2 diabetes mellitus without complications (4) HTN (hypertension) Current Visit: Yes Status: Chronic Qualifiers: Hypertension type: essential hypertension Qualified Code(s): I10 - Essential (primary) hypertension - Constitutional Vitals: Temp Pulse Resp BP Pulse Ox 97.8 F 79 18 108/70 95 03/15/17 16:47 03/15/17 16:47 03/15/17 16:47 03/15/17 16:47 03/15/17 16:47 Internal Medicine: Result - Labs CBC & Chem 7: 03/13/17 21:40 03/15/17 04:34 Labs: BMP 03/15/17 04:34 Sodium 137 Potassium 4.1 Chloride 103 Carbon Dioxide 25 BUN 19 Creatinine 0.79 Glucose 120 H Calcium 8.9 - ABG Interpretation ABG results: PT/INR, D-dimer PT 10.0 Seconds (9.4-12.1) 03/13/17 21:40 - Impressions Impressions Brain MRI 03/15/17 23:37 IMPRESSION: 1. No acute intracranial abnormality. 2. Minimal chronic white matter microvascular ischemic changes. 3. Remote lacunar infarct in the right inferior dorsal jayro. D/ / Vishnu Mccoy MD / Vishnu Mccoy MD Interpreting Provider: Vishnu Mccoy MD - Attending Attestation I examined this patient and my medical decision-making was reviewed with the Resident Physician on 03/15/17. I agree with the documented findings, disposition and treatment plan as described except to the extent set forth below. Ms. Clemens is currently admitted for recurrent crescendo TIA. There is concern for seizure. She is moderate risk due to potential for worsening neuro status. Ms. Clemens feels OK. She is to have MRI and was seen by neuro and EEG ordered. She denies pain. No fever or chills. Exam Alert. Comfortable Heart reg No wheeze I/P 1. Crescendo TIA - patient high risk for CVA and warrents inpatient admit for further work up (EEG, MRI) to r/o other process and begin anticoagulation. 2. Carotid and vertebral obstructive disease Further diagnoses and plan as above.
[2017-03-15] MEDS: *HR* Rivaroxaban 10 MG TABLET PO SCH (20:17)
[2017-03-16] MEDS: Insulin LISPRO 300 UNITS/3 ML VIAL SQ SCH ×4 (08:00→20:23)
--- NOTE | 2017-03-16 08:10 | Neurology Progress Note ---
<Reza Callejas - Last Filed: 03/16/17 10:38> Date of Encounter: 03/16/17 Time of Encounter: 08:10 Assessment and Plan (1) Expressive aphasia Current Visit: Yes Status: Acute Brain MRI without contrast showed no acute intracranial abnormality, minimal chronic white matter microvascular ischemic changes, and remote lacunar infarct in the right inferior dorsal jayro, expressive aphasia resolved on the day of admission, EEG is still pending to rule out possible underlying seizure but it is less likely, recommend continuation of anticoagulation for failed plavix/ aspirin therapy for recurrent TIA symptoms, will make further recommendation after reviewing the EEG test result. Subjective Principal diagnosis: Expressive aphasia Interval history: Patient seen and examined. This morning patient has no complaints or pain, no focal neurological symptoms, no expressive aphasia. Objective - Constitutional Vitals: Temp Pulse Resp BP Pulse Ox 97.9 F 74 16 112/74 97 03/16/17 07:00 03/16/17 07:00 03/16/17 07:00 03/16/17 07:00 03/16/17 07:00 General appearance: Present: cooperative, A&O X 3, pleasant, no acute distress, obese, answers questions appropriately - Head Head exam: Present: atraumatic, normal inspection, normocephalic - Eye Eye exam: Present: EOMI, normal appearance, PERRL - Extremities Exam Extremities exam: Present: normal inspection, warm, radial pulses palpable and symetrical. Absent: calf tenderness, cyanotic, tenderness - Neurological Exam Sensorimotor examination: Present: intact. Absent: pronator drift, fasciculations, hemiparesis, hemineglect, rigidity Motor Examination: Present: grossly full strength in all extremities, full strength in all major muscle groups Sensation intact: Present: intact Posture: Absent: rigid Reflex and gait examination: intact Reflexes: Biceps: 2+, Triceps: 2+, Brachioradialis: 2+, Patella: 2+, Achilles: 2 + Mental Status Examination: Present: awake, alert, oriented to person, oriented to place, oriented to time, follows commands appropriately, answers questions appropriately, no agnosia, no aphasia, no aproxia Cranial nerve examination: Present: PERRL, EOMI, visual hauser intact, sensory to face intact, mastication intact, no facial asymmetry is present, no dysarthria, hearing is intact symmetrically, soft palate elevates bilaterally upon phonation, tongue protrudes midline, no atrophy or facial fasiculations present Cerebellar examination: Present: no dysmetria, no truncal ataxia, no difficulty with rapid alternating movements - VTE Documentation of Mechanical Device: Graduated compression elastic hosiery Results - Laboratory Findings CBC and BMP: 03/13/17 21:40 03/15/17 04:34 Abnormal lab findings: Abnormal lab results Glucose 120 mg/dL (70-99) H 03/15/17 04:34 POC Glucose 113 (58-89) H 03/15/17 19:26 Hemoglobin A1c 6.2 % (-5.6) H 03/15/17 04:34 LDL Cholesterol, Calc 109 mg/dL (0-99) H 03/14/17 03:45 Consult Discharge Plan - Plan Referrals: Murali Ellis MD [Primary Care Provider] - Michael Reeves DO [Partnered Physician] - (1-2 weeks TIAs) Prescriptions: Rivaroxaban [Xarelto] 20 mg PO DAILY #30 tablet <Michael Reeves - Last Filed: 03/16/17 17:24> Date of Encounter: 03/16/17 Time of Encounter: 17:14 Assessment and Plan (1) Expressive aphasia Current Visit: Yes Status: Acute At this juncture I would not absolutely convinced that the etiology for which normal was admitted is due to any primary specific neurologic etiology. There is no evidence to confirm acute cerebral ischemia, the EEG was normal without evidence of any focal neuronal irritability. No seizure activity was identified. I suspect that there may be a supratentorial component to these events. It is certainly nonlogical to attribute them all to transient ischemia when the actual elements of cerebral ischemia is minimal. I would recommend maintaining her on anticoagulation for the time being. If she is confirmed to have atrial fibrillation then certainly anticoagulation will be indicated. There is a relative indication for intracranial stenosis but not an absolute indication. Therefore if we are unable to identify atrial fibrillation then it is certainly reasonable to referred back to Plavix 75 mg daily. Management of stroke risk factors is paramount. You may discharge her at your discretion. I will reevaluate her at your request. Subjective Interval history: As above the patient has no complaints today. She is alert and oriented follows commands and answers questions without difficulty. When I walk into the room she was face timing her daughter on her Ipad. Her neurologic workup was completely negative. MRI scan of the brain did not reveal evidence of a new stroke nor did it reveal evidence of repeated infarcts in a single vessel territory. It did reveal small area of previous infarction in the left parietal lobe region. EEG was normal. Objective - Constitutional Vitals: Temp Pulse Resp BP Pulse Ox 97.8 F 84 18 107/94 97 03/16/17 15:00 03/16/17 15:00 03/16/17 15:00 03/16/17 15:00 03/16/17 15:00 - Neurological Exam Additional comments: Neurologic examination is completely normal. For cerebral functions she is alert and oriented to person place and time follows commands and answers questions appropriately. There is no leg agnosia, aphasia or apraxia identified. Judgment and abstract thinking are intact. Cranial nerves pupils are equal and reactive to light and accommodation. Extraocular motility is intact. Sensory to face is intact. Mastication is intact. There is no facial asymmetry is identified. Hearing is intact symmetrically. Soft palate elevates bilaterally upon phonation. Tongue protrudes midline. Cerebellar exam finds no dysdiadochokinesis or dysmetria she performs finger to nose and heel to gabriel without ataxia. Gait is not ataxic. Motor exam finds normal strength bulk and tone of the upper and lower extremities bilaterally. No involuntary movements or atrophy are present. Sensory exam is normal. Deep tendon reflexes are 2 symmetrically in the biceps triceps brachialis patellar and Achilles. No long tract signs present. Results - Laboratory Findings CBC and BMP: 03/13/17 21:40 03/15/17 04:34 Abnormal lab findings: Abnormal lab results Glucose 120 mg/dL (70-99) H 03/15/17 04:34 POC Glucose 113 (58-89) H 03/15/17 19:26 Hemoglobin A1c 6.2 % (-5.6) H 03/15/17 04:34 LDL Cholesterol, Calc 109 mg/dL (0-99) H 03/14/17 03:45
[2017-03-16] MEDS: ALPRAZolam 0.5 MG TABLET PO SCH ×3 (09:19→20:22)
--- NOTE | 2017-03-16 11:43 | Discharge Summary ---
<Isabel Smith - Last Filed: 03/16/17 16:57> Date of Encounter: 03/16/17 Time of Encounter: 09:25 - Discharge Diagnosis (1) TIA (transient ischemic attack) Priority: Primary Status: Acute Qualifiers: Transient cerebral ischemia type: carotid artery syndrome (hemispheric) Qualified Code(s): G45.1 - Carotid artery syndrome (hemispheric) (2) Carotid arterial disease Priority: Primary Status: Chronic Qualifiers: Laterality: left Qualified Code(s): I77.9 - Disorder of arteries and arterioles, unspecified (3) HTN (hypertension) Priority: Primary Status: Chronic Qualifiers: Hypertension type: essential hypertension Qualified Code(s): I10 - Essential (primary) hypertension (4) Diabetes Priority: Primary Status: Chronic Qualifiers: Diabetes mellitus type: type 2 Diabetes mellitus complication status: without complication Diabetes mellitus long term care phlebotomist insulin use: without long term care phlebotomist use Qualified Code(s): E11.9 - Type 2 diabetes mellitus without complications (5) DVT prophylaxis Priority: Secondary Status: Acute - Discharge Medications Prescriptions: Rivaroxaban [Xarelto] 20 mg PO DAILY #30 tablet Home Medications: Alprazolam [Xanax 0.5 MG Tablet] 0.5 mg PO TID 06/26/16 [History] Canagliflozin [Invokana] 100 mg PO DAILY 06/26/16 [History] Esomeprazole Magnesium [Nexium] 40 mg PO DAILY 06/26/16 [History] Lisinopril [Zestril] 10 mg PO DAILY 06/26/16 [History] Loratadine [Claritin] 10 mg PO DAILY 06/26/16 [History] Metformin [Glucophage] 500 mg PO BIDWM 06/26/16 [History] Paroxetine HCl 20 mg PO DAILY 06/26/16 [History] Rosuvastatin [Crestor] 40 mg PO DAILY 06/26/16 [History] Triamterene/HCTZ 37.5/25mg [Dyazide] 1 tab PO DAILY 06/26/16 [History] Rivaroxaban [Xarelto] 20 mg PO DAILY #30 tablet 03/15/17 [Rx] Allergies/Adverse Reactions: Allergies sulfacetamide [From Sulfamide] Allergy (Verified 03/13/17 21:29) Swelling of the Eye Procedures/tests Complete & Pending: Procedures Performed prior 72 hours Category Date Time Status MR head/brain wo con [MR] Routine MRI 03/15/17 23:37 Completed EV echocardiogram Routine Y 03/14/17 23:36 Completed Date of admission: 03/13/17 23:29 Primary care physician: Murali Ellis MD Consults: 03/13/17 23:37 Consult to Neurology [CONS] Routine Consulting Provider: Neurology [facility] Reason for Consult: expressive aphasia Time Notified: 23:38 Call Completed: No 03/14/17 01:40 Consult to Pastoral Services [CONS] Routine Comment: 03/14/17 10:36 Consult to Laundry Assistant [CONS] Routine Reason for Consult: Xarelto costs 03/16/17 10:32 Consult to Interpret Exam [CONS] Routine Consulting Provider: Michael Reeves Consult to Interpret Exam: Interpret EEG Discharging clinician: Sundar Hahn Anticipated date of discharge: 03/16/17 - Patient Status Disposition: Home, Self-Care Condition: Fair - Discharge Instructions Follow Up With: Murali Ellis MD [Primary Care Provider] - Michael Reeves DO [Partnered Physician] - (1-2 weeks TIAs) - Diet and Activity Activity: return to work once cleared by your PCP/specialist Diet: low fat, low cholesterol, low salt diet Hospital course: Ms. Clemens is a 62 year old female Patient would present to [place] with chief concern: expressive aphasia - difficulty finding words ED eval: NIH 2, Head CT negative. Concern for TIA, prompted [facility] tele-neurology - given resolving symptoms was not a tPA candidate. Comorbidities include: diabetes, hyperlipidemia, hypertension, Hospital course: Initial impression TIA. Patient would undergo treatment with Aspirin, Plavix, Statin. 06/2016 Cath report Left ICA 100% stenosis. 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 Not amenable to surgical intervention. Imaging studies disclosed: Head CT 03/13/17 21:31 IMPRESSION: No acute intracranial abnormality. Neurology consult for TIA suspect crescendo TIA from Left Carotid Artery Disease. Discussed with neurologist Dr. Reeves. Recommend anticoagulation, to obtain echo and brain MRI. consult for xarelto costs. Xarelto indicated for stroke prophylaxis, having failed aspirin and plavix. Echo disclosed: LVEF probably normal, no significant valvular dysfunction, no evidence of PFO by color Doppler or agitated saline. Brain MRI: Brain MRI 03/15/17 23:37 IMPRESSION: 1. No acute intracranial abnormality. 2. Minimal chronic white matter microvascular ischemic changes. 3. Remote lacunar infarct in the right inferior dorsal jayro. Per neurology, differential diagnosis might include possible transient ischemic attack involving the left cerebral hemisphere, rule out focal seizure, rule out transient global amnesia, rule out complicated migraine, rule out anxiety related. Unfortunately she is not a surgical candidate for any of the known arterial occlusions. She was already taking aspirin and switch to Plavix , and has now failed Plavix. She has already had echocardiograms. So at this point I would simply like to obtain an MRI scan of the brain with diffusion to assess for evidence of repeated cerebral infarctions or evidence of chronic ischemic change particularly involving the left cerebral hemisphere. Certainly in the event that she is experiencing focal seizures would wish to rule out the possibility of a neoplasm. Ultimately this might also have been an anxiety/ stress induced event as she was involved in training for a new job and had also been having a somewhat heated exchange between she and her daughter. Certainly there is a relative indication for anticoagulation as she has known intracranial occlusion and was a heavy smoker for most of her life. Further recommendations will be made pending outcome of the MRI and EEG studies. Patient would receive EEG with report: This EEG recording is within normal limits. There is no evidence of epileptiform activity identified during the study. At time of discharge, patient was clinically improved, hemodynamically stable, progressing to baseline, and agreeable with plan of care. Patient was advised to seek immediate medical attention for any new or worsening symptoms including but not limited to fever, chills, chest pain, chest pressure, dyspnea, cough, abdominal pain, nausea, vomiting, diarrhea, bloody stool, urine and the patient voiced understanding. Patient will follow-up with primary care physician: Dr. Murali Ellis - Time Spent with Patient Total time spent providing and/or coordinating discharge services: Greater than 30 minutes - Constitutional Vitals: Temp Pulse Resp BP Pulse Ox 97.9 F 74 16 112/74 97 03/16/17 07:00 03/16/17 07:00 03/16/17 07:00 03/16/17 07:00 03/16/17 07:00 General appearance: Present: A&O X 3, answers questions appropriately Exam: - Head Head exam: Present: atraumatic, normocephalic - Eye Eye exam: Present: EOMI, sclera anicteric - ENT ENT exam: Present: mucous membranes moist - Neck Neck exam general surgery: Present: supple, trachea midline - Respiratory Respiratory exam: Present: CTAB. Absent: rhonchi, wheezes - Cardiovascular Cardiovascular exam: Present: +S1, +S2. Absent: irregular rhythm, JVD - GI/Abdominal GI/Abdominal exam: Present: soft, no peritoneal signs. Absent: tenderness - Extremities Exam Extremities exam: Present: warm, radial pulses palpable and symetrical - Neurological Exam Neurological exam: Present: CN II-XII intact, no focal deficits, strengths equal and symetr throughout. Absent: pronater drift, facial droop, speech deficit - VTE Documentation of Mechanical Device: Graduated compression elastic hosiery <Sundar Hahn P - Last Filed: 03/16/17 18:26> Date of Encounter: 03/16/17 Procedures/tests Complete & Pending: Procedures Performed prior 72 hours Category Date Time Status MR head/brain wo con [MR] Routine MRI 03/15/17 23:37 Completed EV echocardiogram Routine Y 03/14/17 23:36 Completed Date of admission: 03/13/17 23:29 Primary care physician: Murali Ellis MD Consults: 03/13/17 23:37 Consult to Neurology [CONS] Routine Consulting Provider: Neurology [facility] Reason for Consult: expressive aphasia Time Notified: 23:38 Call Completed: No 03/14/17 01:40 Consult to Pastoral Services [CONS] Routine Comment: 03/14/17 10:36 Consult to Laundry Assistant [CONS] Routine Reason for SW Consult: Xarelto costs 03/16/17 10:32 Consult to Interpret Exam [CONS] Routine Consulting Provider: Michael Reeves Consult to Interpret Exam: Interpret EEG Hospital course: Ms. Clemens is a 62 year old female - Time Spent with Patient Total time spent providing and/or coordinating discharge services: - Constitutional Vitals: Temp Pulse Resp BP Pulse Ox 97.8 F 84 18 107/94 97 03/16/17 15:00 03/16/17 15:00 03/16/17 15:00 03/16/17 15:00 03/16/17 15:00 - Attending Attestation I examined this patient and my medical decision-making was reviewed with the COAL DRIER OPERATOR/PA/Advanced Practice Nurse/Resident Physician. I agree with the documented findings, disposition and treatment plan as described except to the extent set forth below. patient and family have concern regarding early dementia. will get family conference tomorrow ( if family not happy with updates then might get neuro involve) explained at length today findings of neurology to patient and granddaughter.
[2017-03-16] MEDS: Ciprofloxacin OPTH Soln 2.5 ML BOTTLE LEFT EYE SCH ×3 (12:18→20:24)
--- NOTE | 2017-03-16 13:14 | Event Note ---
Date of Encounter: 03/16/17 Time of Encounter: 13:10 I have discussed the case with UR nurse who recommends Observation status. I have reviewed the chart and as physician advisor I agree she meets Observation criteria for TIA. Acute CVA was ruled out during this admission. I have discussed the case with the attending physician, Dr Hahn. She has a discharge order which was entered in error by the resident physician. I discontinued the discharge order and the admit as inpatient orders. Dr Hahn will enter Observation order and will discuss the plan of care with the family.
--- NOTE | 2017-03-16 14:38 | EEG/EMG/Oth Biometrics Report ---
EEG Procedure Report Date of procedure: 03/16/17 EEG Procedure: Routine EEG Procedure Note: This is a report of a 21 channel bipolar and referential montage EEG. A posterior dominant rhythm of 10 Hz moderate voltage alpha frequency is identified symmetrically and the posterior head regions. This rhythm attenuates symmetrically with eye opening. Hyperventilation is performed and does not significantly alter the recording. Periods of drowsiness identified as referenced by dropout of posterior dominant rhythm and the presence of mixed theta and delta slow waves anteriorly. However the subject does not approach stage II sleep. Beta frequencies are identified intermittently in the anterior leads. Photic stimulation is performed and does not produce a driving response. The EKG rhythm strip reveals normal sinus rhythm at 84 beats per minute. Impressions: This EEG recording is within normal limits. There is no evidence of epileptiform activity identified during the study. Comment: Beta frequencies are indeed recognized as a normal variant. However, they may be associated with almost a metabolic conditions, anxiety, and medication effect. A normal EEG does not preclude the diagnosis of seizure or epilepsy. If the clinical suspicion for seizure activity is high, serial EEGs or perhaps a prolonged recording may increase the yield. Please correlate clinically. The documentation in the history of HPI and plan were at least partially created by [employer] recognition technology by Dr. Reeves. Errors in grammar, wording or other phrases may exist. If errors are found after the documentation signed, they will be addressed individually in the addendum section of this document when appropriate.
[2017-03-16] MEDS: *HR* Rivaroxaban 10 MG TABLET PO SCH (16:17)
[2017-03-17] MEDS: Ciprofloxacin OPTH Soln 2.5 ML BOTTLE LEFT EYE SCH ×3 (01:24→08:38)
[2017-03-17 07:26] VITALS: BP 130/85
[2017-03-17] MEDS: ALPRAZolam 0.5 MG TABLET PO SCH (08:39)
[2017-03-17] MEDS: Insulin LISPRO 300 UNITS/3 ML VIAL SQ SCH (08:39)
--- NOTE | 2017-03-17 09:12 | Event Note ---
<Isabel Smith - Last Filed: 03/17/17 09:16> Date of Encounter: 03/17/17 Time of Encounter: 09:05 Updated patient on plan of care. Discussed follow-up with neurologist Dr. Reeves, PCP Dr. Ellis. Advised patient that she can seek a second opinion regarding her short term memory loss should she desire. Notified both Dr. Reeves and Dr. Ellis, to have 1 week follow-up as outpatient. Patient also would like holter monitor and cardiology assessment as outpatient. Will arrange. <Sundar Hahn - Last Filed: 03/21/17 17:56> Date of Encounter: 03/21/17 I examined this patient and my medical decision-making was reviewed with the SENIOR VALIDATION ENGINEER/PA/Advanced Practice Nurse/Resident Physician. I agree with the documented findings, disposition and treatment plan as described except to the extent set forth below.
== END 2017-03-17 12:25 | disposition home or self-care (01) ==
LOC: 2NENU 21:25 → EMEROO 21:25 → SUATTDRO 23:29 → 2NENU 03-14 00:17
PROVIDERS: ADMIT Internal Medicine; ATTEND Internal Medicine

== ENCOUNTER 2017-07-02 13:14 | Inpatient (IN) ==
--- NOTE | 2017-07-02 13:23 | Emergency Department Note ---
Disposition Clinical Impression: New onset seizure, Generalized tonic-clonic seizure Disposition: Admitted As Inpatient Condition: Good Time of Disposition: 17:18 General Adult HPI - General Chief complaint: ED Seizure Stated complaint: Seizure activity Time Seen by Provider: 07/02/17 13:18 Source: patient, EMS Mode of arrival: EMS Limitations: altered mental status Nursing Notes Reviewed: Yes Vital Signs Reviewed: Yes - History of Present Illness HPI Narrative: 62-year-old female reported history of recent CVA 2 weeks ago presents to the ED via EMS for seizure like activity and fall. Patient has a badge with her name Pallavi from the [employer]. Patient is alert and oriented to person and place. Anytime I asked the date or what day it is she repeats her date. She is unsure of what occurred today. She appears post ictal at this time. She is not able to provide a consistent history. When I ask about anticoagulation she denies the use of aspirin, Plavix, Coumadin warfarin or any NOACs. Denies any pain at this time. States she needs to use the restroom. She has an obvious laceration to her lateral tongue. No neck pain. No obvious signs of trauma on her head or extremities. Denies any chest pain, shortness of breath or abdominal pain. Denies any history of diabetes or seizure disorder. Will check a point of care glucose here. CT of the head. Check basic labs EKG and a urinalysis. Will reevaluate. I was informed that she may have had a TIA 2 months ago. - Related Data Home Medications Medication Instructions Recorded Confirmed ALPRAZolam [Xanax 0.5 MG Tablet] 0.5 mg PO TID 06/26/16 07/02/17 Canagliflozin [Invokana] 100 mg PO DAILY 06/26/16 07/02/17 Esomeprazole Magnesium [Nexium] 40 mg PO DAILY 06/26/16 07/02/17 Lisinopril [Zestril] 10 mg PO DAILY 06/26/16 07/02/17 Loratadine [Claritin] 10 mg PO DAILY 06/26/16 07/02/17 Paroxetine HCl 20 mg PO DAILY 06/26/16 07/02/17 Rosuvastatin [Crestor] 40 mg PO DAILY 06/26/16 07/02/17 Triamterene/HCTZ 37.5/25mg 1 tab PO DAILY 06/26/16 07/02/17 [Dyazide] metFORMIN [Glucophage] 500 mg PO DAILY 06/26/16 07/02/17 Aspirin Enteric Coated [Aspirin EC] 81 mg PO DAILY 07/02/17 07/02/17 Clopidogrel [Plavix] 75 mg PO DAILY 07/02/17 07/02/17 MetroNIDAZOLE [Metrogel] 1 appl TP DAILY 07/02/17 07/02/17 Allergies Allergy/AdvReac Type Severity Reaction Status Date / Time sulfacetamide Allergy Swelling Verified 03/13/17 21:29 [From Sulfamide] of the Eye Review of Systems: As Per HPI Limitations: ROS unobtainable due to patients medical condition Past Medical History - Past Medical History Source: unable to obtain Medical history: Reports: diabetes, hyperlipidemia, hypertension, other Psychiatric history: Reports: no psych history CLINICAL PROGRAM CONSULTANT history: Reports: bilateral tubal ligation - Social History Smoking Status: Former smoker Smokeless Tobacco Status: No Alcohol use: Reports: none Drug use: Reports: none Physical Exam - General Limitations: altered mental status (Appears post ictal) General appearance: alert, in no apparent distress - Head Head exam: atraumatic - Expanded Head Exam Head exam physicial: Present: contusion (right scalp) - Eye Eye exam: Present: normal appearance, PERRL - ENT ENT exam: normal exam - Expanded ENT Exam External ear exam: Present: normal external inspection TM/Canal: Hemotympanum: Negative Nose exam: negative: rhinorrhea Mouth exam: Present: laceration (Left lateral tongue) Teeth exam: Present: normal inspection Throat exam: Present: normal inspection - Neck Neck exam: Present: normal inspection, trachea midline. Absent: tenderness - Chest Chest inspection: Present: normal inspection, symmetric chest wall rise. Absent : tenderness, rash - Respiratory Respiratory exam: Present: normal lung sounds bilaterally. Absent: respiratory distress, wheezes - Cardiovascular Cardiovascular exam: Present: regular rate, normal rhythm, normal heart sounds - Abdominal Exam Abdominal exam: Present: soft, Non-Tender, normal bowel sounds. Absent: tenderness, distention, guarding, rebound, rigidity - Extremities Exam Extremities exam: Present: normal inspection - Neurological Exam Neurological exam: Present: alert - Expanded Neurological Exam Patient oriented to: Present: person, place. Absent: time (Continues to answer with her birthdate) Cranial nerves: EOM function (II, III, IV, ): Normal, facial sensation (V): Normal, facial palsy (VII): Normal, gag reflex (IX): Normal, spinal accessory function (XI): Normal, tongue deviation (XII): Normal Motor strength - LUE: 5/5 Motor strength - RUE: 5/5 Motor strength - LLE: 5/5 Motor strength - RLE: 5/5 - Skin Skin exam: Present: warm, dry, intact, normal color Course - Reevaluation(s) Reevaluation #1: Workup was initiated for concern of new onset seizure. She does have a ton laceration consistent with seizure. Friends are now at bedside reports she has a history of this and the past. She will have episodes where she is confused and takes a while to come back with it. She has never passout however. Concern for history of partial seizures. Reports that she is currently be evaluated for sleeping disorder. Her initial blood glucose was in normal limits. On reevaluation patient is now alert and oriented to person place and time. She is able to recall events prior to the fall. Friends are staying from coworkers that she fell out of her chair and started experiencing a tonic clonic like seizure. She remained confused up until my evaluation. Unknown amount of time. She moves all 4 extremities without any focal neural deficits. Heart lungs are normal. CT of the head does not show any underlying mass. No bleed or intracranial abnormality. Cervical spine shows some degenerative changes no acute fracture. Will get a MRI admit for new onset seizure. Patients in agreement with this plan. Head CT 07/02/17 13:18 IMPRESSION: Small right scalp hematoma. No underlying skull fracture or acute intracranial abnormality. D/ / Simi Wray MD / Simi Wray MD Interpreting Provider: Simi Wray MD Cervical Spine CT 07/02/17 13:48 IMPRESSION: Multilevel degenerative changes in the cervical spine. No acute osseous abnormality. D/ / Simi Wray MD / Simi Wray MD Interpreting Provider: Simi Wray MD Time: 15:00 Reevaluation #2: Patient had a two-minute generalized tonic clonic seizure witnessed by myself and nurse. Patient was placed on 15 later non-rebreather with pulse ox oxygen saturation initially 95 now 98%. Ativan was ordered but not given until post ictal. She has a larger tongue laceration to the left lateral tongue. Pupils are equal bilaterally. Patient is now snoring. Time: 19:59 - Consultations Consultation #1: Spoke with on-call hospitalist milo Pozo to admit for new onset seizure, tongue laceration.. No further orders at this time Time: 15:28 Vital Signs Temperature 98.5 F 07/02/17 13:15 Pulse Rate 107 07/02/17 13:15 Respiratory Rate 18 07/02/17 13:15 Blood Pressure 120/74 07/02/17 13:15 O2 Sat by Pulse Oximetry 92 07/02/17 13:15 Temperature 98.5 F 07/02/17 13:15 Pulse Rate 107 07/02/17 13:15 Respiratory Rate 18 07/02/17 19:24 Blood Pressure 146/60 07/02/17 19:24 O2 Sat by Pulse Oximetry 92 07/02/17 13:15 Oxygen Delivery Oxygen Delivery Room Air Medical Decision Making - Medical Records Medical records reviewed: Yes I reviewed the patient's medical records. - Lab Data Lab results reviewed: Yes I reviewed the patient's lab results. Result diagrams: 07/02/17 13:42 07/02/17 13:42 Lab Results 07/02/17 07/02/17 Range/Units 13:42 13:42 WBC 8.9 (4.3-11.1) K/mcL RBC 5.20 H (3.82-4.97) M/mcL Hgb 14.1 (11.5-15.4) g/dL Hct 44.3 (35.3-44.9) % MCV 85.2 (83.0-100.0) fL MCH 27.1 L (28.0-33.3) pg MCHC 31.8 (31.6-35.5) g/dL RDW 13.2 (11.5-14.5) % Plt Count 357 (140-400) K/mcL MPV 10.1 (9.4-12.4) fL Immature Gran % 0.3 (0-4) % Seg Neutrophils % 57.8 % Lymphocytes % 29.5 % Monocytes % 9.2 % Eosinophils % 2.0 % Basophils % 1.2 % Neutrophils # 5.1 (1.6-8.9) K/mcL Lymphocytes # 2.6 (0.6-4.6) K/mcL Monocytes # 0.8 (0.0-1.3) K/mcL Eosinophils # 0.2 (0.0-0.6) K/mcL Basophils # 0.1 (0.0-0.2) K/mcL Sodium 137 (136-145) mEq/L Potassium 3.5 (3.5-4.5) mEq/L Chloride 101 (98-109) mEq/L Carbon Dioxide 24 (19-29) mEq/L BUN 13 (7-20) mg/dL Creatinine 0.88 (0.57-1.11) mg/dL Est GFR ( Amer) > 60 (> 60) Est GFR (Non-Af Amer) > 60 (> 60) BUN/Creatinine Ratio 15 (6-26) Glucose 121 H (70-99) mg/dL Calculated Osmolality 285 (280-300) Calcium 9.0 (8.6-10.8) mg/dL Magnesium 2.3 (1.6-2.6) mg/dL - Radiology Data Radiology results reviewed: Yes I reviewed the patient's radiology results. Head CT 07/02/17 13:18 IMPRESSION: Small right scalp hematoma. No underlying skull fracture or acute intracranial abnormality. D/ / Simi Wray MD / Simi Wray MD Interpreting Provider: Simi Wray MD Cervical Spine CT 07/02/17 13:48 IMPRESSION: Multilevel degenerative changes in the cervical spine. No acute osseous abnormality. D/ / Simi Wray MD / Simi Wray MD Interpreting Provider: Simi Wray MD - EKG Data EKG #1 EKG attestation: Yes I reviewed and interpreted this EKG. EKG results narrative: EKG performed 1333 sinus tachycardia 10 8 bpm, normal axis, no ST elevation, no T wave inversion, intervals are within normal limits. Compared to old EKG performed 03/13/2015 shows consistent findings. No acute ischemic changes. Attestation Statement - Attestation Attestation: I examined this patient and my medical decision-making was reviewed with the Resident Physician. I agree with the documented findings, disposition and treatment plan as described except to the extent set forth below. Based on tongue biting and what seems like a postictal state. I suspect that the patient had a seizure. She has had multiple episodes over last couple of months for she called her daughter and seemed disoriented, when the daughter asked her what her name was, she replied with her birthday. This happened a couple of times, and again today, when Dr. Vicente asked her name, she replied with her birthday. I suspect that the patient may have been having partial seizures with these other episodes and had a generalized seizure today, but based on history provided by witnesses it is difficult to say. She is now completely coherent and neurologically normal, has a mild posterior headache.
[2017-07-02 13:56] LABS: Basophils # 0.1 K/mcL (0.0-0.2); Basophils % 1.2 %; Eosinophils # 0.2 K/mcL (0.0-0.6); Hematocrit 44.3 % (35.3-44.9); Hemoglobin 14.1 g/dL (11.5-15.4); Immature Granulocytes % 0.3 % (0-4); Lymphocytes # 2.6 K/mcL (0.6-4.6); Lymphocytes % 29.5 %; Mean Corpuscular HGB Conc 31.8 g/dL (31.6-35.5); Mean Corpuscular Hemoglobin 27.1 pg (28.0-33.3); Mean Corpuscular Volume 85.2 fL (83.0-100.0); Mean Platelet Volume 10.1 fL (9.4-12.4); Monocytes # 0.8 K/mcL (0.0-1.3); Monocytes % 9.2 %; Neutrophils # 5.1 K/mcL (1.6-8.9); Platelet Count 357 K/mcL (140-400); Red Cell Distribution Width 13.2 % (11.5-14.5); Segmented Neutrophils % 57.8 %
[2017-07-02 14:16] LABS: BUN/Creatinine Ratio 15 (6-26); Blood Urea Nitrogen 13 mg/dL (7-20); Carbon Dioxide 24 mEq/L (19-29); Chloride 101 mEq/L (98-109); Glucose 121 mg/dL (70-99); Magnesium 2.3 mg/dL (1.6-2.6); Osmolality,Calculated 285 (280-300); Potassium 3.5 mEq/L (3.5-4.5); Sodium 137 mEq/L (136-145); eGFR For African Americans > 60 (> 60); eGFR For Non-African Americans > 60 (> 60)
[2017-07-02] MEDS ORDERED: Naloxone 0.4 MG/ML INJ IVP PRN (18:38)
[2017-07-02] MEDS ORDERED: Ondansetron 4 MG/2 ML VIAL IVP PRN (18:38)
[2017-07-02] MEDS ORDERED: D5% in Water 1,000 ML IVC PRN (18:52)
[2017-07-02] MEDS ORDERED: *HR* Dextrose 50 % in Water (Syg) 50 ML SYRINGE IVP PRN (18:52)
[2017-07-02] MEDS ORDERED: Dextrose Gel 15 GM PO PRN ×2 (18:52)
[2017-07-02] MEDS ORDERED: *HR* LORazepam 2 MG/ML VIAL ONE ×2 (19:55→20:05)
[2017-07-02] MEDS ORDERED: *HR* LORazepam 2 MG/ML VIAL IVP STA (20:03)
[2017-07-02] MEDS ORDERED: ALPRAZolam 0.5 MG TABLET PO PRN (20:05)
[2017-07-02] MEDS ORDERED: *HR* LORazepam 2 MG/ML VIAL IVP PRN (20:08)
--- NOTE | 2017-07-02 20:25 | Internal Med History&Physical ---
<Luis Alberto Cifuentes - Last Filed: 07/02/17 21:13> Date of Encounter: 07/02/17 Time of Encounter: 19:00 Assessment and Plan (1) New onset seizure Current visit: Yes Status: Acute Patient presents with seizure which occurred today when she was at work. Patient states she felt strange at work and the next thing she remembers is being in the ED. Co-workers told family that the patient was having muscle spasms and fell out of her chair, striking her head. In the ED, patient was unable to give a history and gave her date as the answer to questions repeatedly. Her daughter states that this occurred in February when she was admitted previously. On examination, the patient is neurologically intact and able to answer questions appropriately, is alert and oriented x3, and able to give ages and detailed information about family history. Family states she is back to baseline. Patient bit her tongue during the episode and has a laceration to the right front of her tongue. CT of the head and MRI of the head/ brain are unremarkable for seizure activity. EEG ordered. Seizure precautions ordered with padding for bed rails. NPO status until bedside swallow evaluation is passed. Neuro consult ordered. Neuro checks ordered Q2. Ativan 2 mg Q2 PRN for seizure activity. Patient to be placed as falls/safety precautions. Patient to be monitored closely for neurological changes. (2) Weakness Current visit: Yes Status: Acute Patient presents with weakness due to current symptoms of possible seizure activity. Echocardiogram ordered to evaluate cardiac status. Patient denies any previous cardiac issues. Patient to be placed on continuous cardiac telemetry due to seizure-type activity as well as tachycardia on admission. Orthostatic BPs and vital signs ordered. Patient to be placed as falls precautions/up with assist/bed rest with bathroom privileges with assist only due to weakness and seizures. (3) Carotid arterial disease Current visit: Yes Status: Chronic Patient presents with history of chronic carotid artery disease. Patient reports that in February she had a carotid Doppler study done which showed 97% blockage of the left carotid artery and 60% blockage of the right carotid artery which may suggest reasoning for current episodes. Vascular surgery consult ordered. Qualifiers: Laterality: bilateral Qualified Code(s): I77.9 - Disorder of arteries and arterioles, unspecified (4) Diabetes Current visit: No Status: Chronic Patient presents with history of chronic diabetes controlled by oral anti- hyperglycemics. Will hold patient's oral medications and order low-dose correction insulin sliding scale with hypoglycemia protocol. A1c ordered. Blood glucose checks ACHS. Qualifiers: Diabetes mellitus type: type 2 Diabetes mellitus complication status: without complication Diabetes mellitus termite helper insulin use: without long-term use Qualified Code(s): E11.9 - Type 2 diabetes mellitus without complications (5) HTN (hypertension) Current visit: Yes Status: Chronic Patient presents with history of chronic hypertension. Will monitor patient and vital signs and continue patient's lisinopril. Qualifiers: Hypertension type: essential hypertension Qualified Code(s): I10 - Essential (primary) hypertension (6) HLD (hyperlipidemia) Current visit: Yes Status: Chronic Patient presents with history of chronic hyperlipidemia. Lipid panel ordered. Will continue patient's Crestor. Qualifiers: Hyperlipidemia type: pure hypercholesterolemia Qualified Code(s): E78.00 - Pure hypercholesterolemia, unspecified; E78.0 - Pure hypercholesterolemia (7) DVT prophylaxis Current visit: Yes Status: Acute Patient to be placed on DVT prophylaxis due to current admission protocol and bed rest status. Due to patient's head injury earlier, SCDs will be placed on patient's bilateral LEs. Internal Medicine - H&P: HPI Chief complaint: Seizure Admitted From: Emergency Dept Plans for Post Hospital Care: Home History of present illness: Mrs. Clemens is a 62 year old female who presents from the ED with chief complaint of seizure which occurred today when she was at work. Patient states she felt strange at work and the next thing she remembers is being in the ED. Co-workers told family that the patient was having muscle spasms and fell out of her chair , striking her head. In the ED, patient was unable to give a history and gave her date as the answer to questions repeatedly. Her daughter states that this occurred in February when she was admitted previously. On examination, the patient is neurologically intact and able to answer questions appropriately, is alert and oriented x3, and able to give ages and detailed information about family history. Family states she is back to baseline. Patient bit her tongue during the episode and has a laceration to the right front of her tongue. She also has a 3 cm diameter laceration of the head from falling out of her chair. CT scan of the head/brain w/o contrast today shows small right scalp hematoma and no underlying skull fracture or acute intracranial abnormality. CT of the cervical spine today w/o contrast shows multilevel degenerative changes in the cervical spine. No acute osseous abnormality. MRI of the head/brain today w and w/o contrast shows no acute intracranial abnormality or finding to suggest etiology of seizure. Right lateral scalp swelling. Patient reports having a carotid Doppler study done in February during previous admission which showed a 97 % blockage of the left carotid and a 60% blockage of the right carotid. Patient 's medical history includes diabetes with oral medications, hyperlipidemia, and hypertension. Patient is a former smoker reporting she quit 5 years ago and smoked 1-1-1/2 packs per day. Patient is at moderate risk for continued seizure activity based on history and current symptoms and will be placed as inpatient status with consults for vascular surgery and neurology placed. Seizure precautions and padded bed rails ordered with Ativan 2 mg Q2 PRN for seizure activity. Patient to be NPO until bedside swallow evaluation completed. Will hold patient's Paxil and continue Xanax PRN and other home medications. Falls/ safety precautions ordered. Patient to be monitored closely. Time spent with patient >40 minutes. Past Med Surg Social Fam HX - Past Medical History Source: patient Medical history: diabetes, hyperlipidemia, hypertension, other Psychiatric history: anxiety, depression - Past Surgical History Surgical History: other (Tubal ligation) - Social History Smoking Status: Former smoker Packs per day: 1 - 1.5 PPD - Reports quitting 5 years ago Smokeless Tobacco Status: No Alcohol use: none Drug use: none Occupational status: employed Current living situation: Home, With Family Activity Level: Independent ambulation Recent Out of Country Travel Within the Last 8 Weeks: No Exposure or Possible Exposure to Illness During Travel: No - Family History Mother Race: Family Member Ethnicity: Non- Living Status: Still Living Hx Family Cardiac Disorders: Yes (HTN, HLD, TX, Strokes, HD) Hx Family Endocrine Disorder: Yes (DM) Father Race: Family Member Ethnicity: Non- Living Status: Age at : 52 Cause of : Cancer Hx Family Cardiac Disorders: No Hx Family Respiratory Disorders: No Hx Family Cancer: Yes (Liver, Stomach) Hx Family GI Disorders: Yes (Ulcers) Sister Race: Family Member Ethnicity: Non- Living Status: Age at : 63 Hx Family Respiratory Disorders: Yes (Pulmonary fibrosis) Brother Race: Family Member Ethnicity: Non- Living Status: Age at : 63 Cause of : HD Hx Family Cardiac Disorders: Yes (HD) Internal Medicine - H&P: Meds ALPRAZolam [Xanax 0.5 MG Tablet] 0.5 mg PO TID 06/26/16 [History] Canagliflozin [Invokana] 100 mg PO DAILY 06/26/16 [History] Esomeprazole Magnesium [Nexium] 40 mg PO DAILY 06/26/16 [History] Lisinopril [Zestril] 10 mg PO DAILY 06/26/16 [History] Loratadine [Claritin] 10 mg PO DAILY 06/26/16 [History] Paroxetine HCl 20 mg PO DAILY 06/26/16 [History] Rosuvastatin [Crestor] 40 mg PO DAILY 06/26/16 [History] Triamterene/HCTZ 37.5/25mg [Dyazide] 1 tab PO DAILY 06/26/16 [History] metFORMIN [Glucophage] 500 mg PO DAILY 06/26/16 [History] Aspirin Enteric Coated [Aspirin EC] 81 mg PO DAILY 07/02/17 [History] Clopidogrel [Plavix] 75 mg PO DAILY 07/02/17 [History] MetroNIDAZOLE [Metrogel] 1 appl TP DAILY 07/02/17 [History] Allergies sulfacetamide [From Sulfamide] Allergy (Verified 03/13/17 21:29) Swelling of the Eye All Systems PM: A 10-system review of systems was performed and is negative for pertinent findings except as documented above in the HPI. - Constitutional Constitutional: as per HPI, falls, weakness, other (Seizures), no chills, no fever(s), no night sweats - EENT Eyes: no change in vision, no discharge, no pain, no photophobia Ears: no ear discharge, no ear pain, no tinnitus Nose, mouth and throat: as per HPI, neck pain, no dysphagia, no nasal discharge , no sore throat - Breasts Breasts: as per HPI - Cardiovascular Cardiovascular ROS IM: no chest pain, no diaphoresis, no dyspnea, no lightheadedness, no palpitations, no syncope - Respiratory Respiratory: no cough, no dyspnea, no wheezing, no excessive phlegm production - Gastrointestinal Gastrointestinal: no abdominal pain, no diarrhea, no hematemesis, no hematochezia, no melena, no nausea, no vomiting - Genitourinary Genitourinary: no change in urinary stream, no dysuria, no flank pain, no hematuria Menstruation: as per HPI - Musculoskeletal Musculoskeletal ROS IM: as per HPI, neck pain - Integumentary Integumentary IM: no rash, no unusual bruising - Neurological Neurological ROS: as per HPI, convulsions, headache(s), other (Seizures) - Psychiatric Psychiatric: as per HPI, anxiety, depression - Endocrine Endocrine IM: as per HPI - Hematologic/Lymphatic Hematologic/Lymphatic: no easy bruising - Allergic/Immunologic Allergic/Immunologic: as per HPI - Constitutional Vitals: Temp Pulse Resp BP Pulse Ox 98.5 F 107 18 146/60 92 07/02/17 13:15 07/02/17 13:15 07/02/17 19:24 07/02/17 19:24 07/02/17 13:15 General appearance: Present: cooperative, A&O X 3, morbidly obese, pleasant, no acute distress, answers questions appropriately - Head Additional comments: Patient has 3 cm diameter laceration of the right lateral scalp from falling out of her chair during seizure. - Eye Eye exam: Present: PERRL, conjuntiva pink, sclera anicteric Pupils: Present: PERRL - ENT ENT exam: Present: normal exam, normal external ear exam - Neck Neck exam general surgery: Present: normal inspection, supple, trachea midline. Absent: lymphadenopathy - Respiratory Respiratory exam: Present: CTAB. Absent: accessory muscle use, rales, rhonchi, wheezes - Cardiovascular Cardiovascular exam: Present: RRR, +S1, +S2. Absent: diastolic murmur, gallop, rubs, systolic murmur - GI/Abdominal GI/Abdominal exam: Present: normal bowel sounds, soft, no peritoneal signs. Absent: distended, tenderness - Rectal Rectal exam: Present: deferred - Additional comments: Gu exam deferred. - Extremities Exam Extremities exam: Present: warm, radial pulses palpable and symmetrical. Absent : calf tenderness, cyanotic, pedal edema - Back Exam Back exam: Present: normal inspection - Neurological Exam Neurological exam: Present: CN II-XII intact, oriented X3, no focal deficits. Absent: pronater drift, facial droop, speech deficit - Psychiatric Psychiatric exam: Present: normal affect, normal mood - Skin Skin exam: Present: dry, intact Internal Med - H&P Results - Labs CBC & Chem 7: 07/02/17 13:42 07/02/17 13:42 - EKG Data EKG shows normal: sinus rhythm Rate: tachycardia - EKG Data Prior EKG available for review: yes When compared to previous EKG: there is no significant change EKG comments: 07/02/17 20:45 EKG dated 06/26/16 shows sinus rhythm with possible left atrial enlargement and nonspecific T-wave abnormality. EKG dated 07/02/17 shows sinus tachycardia with occasional supraventricular premature complexes, possible left atrial enlargement, moderate ST depression. - Diagnostic Studies CT scan - head Additional comments: Impressions Head CT 07/02/17 13:18 IMPRESSION: Small right scalp hematoma. No underlying skull fracture or acute intracranial abnormality. D/ / Simi Wray MD / Simi Wray MD Interpreting Provider: Simi Wray MD MRI - head Additional comments: Impressions Brain MRI 07/02/17 15:07 IMPRESSION: 1. No acute intracranial abnormality or finding to suggest etiology of seizure. 2. Right lateral scalp swelling. D/ / Vishnu Mccoy MD / Vishnu Mccoy MD Interpreting Provider: Vishnu Mccoy MD Other Images Additional comments: Impressions Cervical Spine CT 07/02/17 13:48 IMPRESSION: Multilevel degenerative changes in the cervical spine. No acute osseous abnormality. D/ / Simi Wray MD / Simi Wray MD Interpreting Provider: Simi Wray MD <Costa Bradford - Last Filed: 07/02/17 23:37> Date of Encounter: 07/02/17 Internal Medicine - H&P: HPI History of present illness: Ms. Clemens is a 62 year old female All Systems PM: A 10-system review of systems was performed and is negative for pertinent findings except as documented above in the HPI. - Constitutional Vitals: Temp Pulse Resp BP Pulse Ox 100.9 F H 107 18 146/60 92 07/02/17 22:57 07/02/17 13:15 07/02/17 19:24 07/02/17 19:24 07/02/17 13:15 Internal Med - H&P Results - Labs CBC & Chem 7: 07/02/17 13:42 07/02/17 13:42 - Attending Attestation I independently obtained history and examined this patient and my medical decision-making was reviewed with the nurse practitioner, Luis Alberto Cifuentes. I agree with the documented findings, disposition and treatment plan as described. My findings are summarized below: Patient presented to the hospital with new onset seizure versus syncope. On exam she is in no acute distress, awake alert oriented. Neurologically she is back to baseline. Plan: Consult neurology. Obtain EEG. Workup for carotid stenosis and vascular surgery consult to investigate cardiovascular cause for syncope.
[2017-07-02] MEDS ORDERED: *HR* LORazepam 2 MG/ML VIAL IVP ONE (20:43)
[2017-07-02] MEDS: Insulin LISPRO 300 UNITS/3 ML VIAL SQ SCH (23:01)
[2017-07-02] MEDS: Acetaminophen 325 MG TABLET PO PRN (23:55)
[2017-07-03] MEDS: *HR* HYDROcodone/Acet 5/325 mg TABLET PO PRN ×4 (04:02→21:23)
[2017-07-03 05:01] LABS: Basophils # 0.1 K/mcL (0.0-0.2); Basophils % 0.6 %; Eosinophils % 0.1 %; Hemoglobin 12.7 g/dL (11.5-15.4); Immature Granulocytes % 0.3 % (0-4); Lymphocytes # 2.5 K/mcL (0.6-4.6); Lymphocytes % 16.3 %; Mean Corpuscular HGB Conc 32.6 g/dL (31.6-35.5); Mean Corpuscular Hemoglobin 28.1 pg (28.0-33.3); Mean Corpuscular Volume 86.3 fL (83.0-100.0); Mean Platelet Volume 10.5 fL (9.4-12.4); Monocytes # 1.1 K/mcL (0.0-1.3); Monocytes % 7.3 %; Neutrophils # 11.4 K/mcL (1.6-8.9); Platelet Count 316 K/mcL (140-400); Red Blood Count 4.52 M/mcL (3.82-4.97); Red Cell Distribution Width 13.5 % (11.5-14.5); Segmented Neutrophils % 75.4 %
[2017-07-03 05:04] LABS: INR 1.1; Prothrombin Time 11.4 Seconds (9.4-12.1)
[2017-07-03 05:07] LABS: Activated Partial Thrombo Time 27.2 Seconds (26.0-36.0)
[2017-07-03 05:15] LABS: BUN/Creatinine Ratio 15 (6-26); Blood Urea Nitrogen 12 mg/dL (7-20); Calcium 8.8 mg/dL (8.6-10.8); Carbon Dioxide 25 mEq/L (19-29); Chloride 102 mEq/L (98-109); Chol/HDL Ratio 3.1 (0-4.9); Cholesterol 157 mg/dL (< 200); Glucose 165 mg/dL (70-99); HDL Cholesterol 50 mg/dL (40-59); LDL Cholesterol,Calculated 87 mg/dL (0-99); Magnesium 2.2 mg/dL (1.6-2.6); Osmolality,Calculated 281 (280-300); Phosphorous 3.7 mg/dL (2.3-4.7); Potassium 3.3 mEq/L (3.5-4.5); Sodium 134 mEq/L (136-145); Triglycerides 101 mg/dL (< 150); eGFR For African Americans > 60 (> 60); eGFR For Non-African Americans > 60 (> 60)
[2017-07-03] MEDS ORDERED: Potassium Chloride Elixir 20 MEQ/15 ML UDC PO ONE (07:57)
[2017-07-03] MEDS: Insulin LISPRO 300 UNITS/3 ML VIAL SQ SCH ×4 (08:09→21:25)
[2017-07-03] MEDS: Pantoprazole 40 MG VIAL IVP SCH (08:17)
[2017-07-03] MEDS: Aspirin Enteric Coated 81 MG Tablet PO SCH (08:17)
[2017-07-03] MEDS: Loratadine 10 MG TABLET PO SCH (08:17)
[2017-07-03] MEDS: METRONIDAZOLE APPL TP SCH (08:25)
--- NOTE | 2017-07-03 10:55 | Internal Med Progress Note ---
Date of Encounter: 07/03/17 Time of Encounter: 10:52 - Assessment and plan (1) New onset seizure Current Visit: Yes Status: Acute Assessment and plan: Noted to have new onset generalized seizure with tongue bite, with a repeat episode in the emergency room. Patient also has history of nonspecific episodic neurologic symptoms concerning for seizures-confusion, garbled speech, appeared taste in mouth, not feeling well, expressive aphasia. CT head and MRI brain with and without contrast done in the emergency room showed no acute abnormality, focal mass or bleed. Continue IV Keppra and seizure precautions. When necessary IV Ativan for repeat seizures. Echocardiogram shows preserved ejection fraction and mild left ventricular diastolic dysfunction. Neurology consult appreciated, patient will require CSF analysis and EEG. (2) Carotid arterial disease Current Visit: Yes Status: Chronic Assessment and plan: Patient has history of left ICA 80-99% stenosis versus occlusion on carotid Doppler. She also underwent carotid angiogram which revealed occlusion rather than stenosis and vascular surgery consult opined this is not surgical. Continue to monitor. Qualifiers: Laterality: left Qualified Code(s): I77.9 - Disorder of arteries and arterioles, unspecified (3) Diabetes Current Visit: Yes Status: Chronic Assessment and plan: Continue Accu-Chek blood glucose monitoring with basal bolus insulin regimen. Diabetic diet. 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 Continue home medications. Qualifiers: Hypertension type: essential hypertension Qualified Code(s): I10 - Essential (primary) hypertension (5) HLD (hyperlipidemia) Current Visit: Yes Status: Chronic Qualifiers: Hyperlipidemia type: unspecified Qualified Code(s): E78.5 - Hyperlipidemia , unspecified - Subjective Interval history: Noted to be drowsy due to Ativan but able to answer appropriately; tolerates diet and no focal weakness, nausea, emesis; does report generalized bodyaches from seizures yesterday; - Constitutional Vitals: Temp Pulse Resp BP Pulse Ox 97.8 F 78 18 114/67 92 07/03/17 07:08 07/03/17 07:08 07/03/17 07:08 07/03/17 07:08 07/03/17 07:08 General appearance: Present: A&O X 3, answers questions appropriately - Respiratory Respiratory exam: Present: CTAB. Absent: accessory muscle use, rales, rhonchi, wheezes - Cardiovascular Cardiovascular exam: Present: RRR, +S1, +S2. Absent: diastolic murmur, gallop, rubs, systolic murmur - GI/Abdominal GI/Abdominal exam: Present: normal bowel sounds, soft, no peritoneal signs. Absent: distended, tenderness - Extremities Exam Extremities exam: Present: full ROM, warm, radial pulses palpable and symmetrical. Absent: calf tenderness, cyanotic, pedal edema - Neurological Exam Neurological exam: Present: CN II-XII intact, oriented X3, no focal deficits. Absent: pronater drift, facial droop, speech deficit Internal Medicine: Result - Labs CBC & Chem 7: 07/03/17 04:41 07/03/17 04:41 Labs: Short CBC 07/03/17 Range/Units 04:41 WBC 15.1 H D (4.3-11.1) K/mcL Hgb 12.7 (11.5-15.4) g/dL Hct 39.0 (35.3-44.9) % Plt Count 316 (140-400) K/mcL Neutrophils # 11.4 H (1.6-8.9) K/mcL BMP 07/03/17 04:41 Sodium 134 L Potassium 3.3 L Chloride 102 Carbon Dioxide 25 BUN 12 Creatinine 0.81 Glucose 165 H Calcium 8.8 - ABG Interpretation ABG results: PT/INR, D-dimer PT 11.4 Seconds (9.4-12.1) 07/03/17 04:41 Consult Discharge Plan - Plan Referrals: Murali Ellis MD [Primary Care Provider] -
[2017-07-03] MEDS: *HR* Morphine 2 MG/ML SYRINGE IVP PRN ×2 (10:59→19:43)
--- NOTE | 2017-07-03 14:36 | Neurology - Consult Note ---
Date of Encounter: 07/03/17 Time of Encounter: 14:30 Assessment and Plan (1) New onset seizure Current Visit: Yes Status: Acute 62-year old woman with 1-year history of fluctuating episodic symptoms, suggestive of seizures, now culminating in convulsive seizures, corroborating with the semiology (with secondary generalization), including the left head turn noted in the EEG video, suggestive of left hemispheric origin, accounting for aphasic spells. Etiology needs to be investigated Needs CSF studies (including fungal studies and CSF for cytology) Needs MRI brain with contrast. EEG on Wednesday. Check ESR, CRP, Ammonia Agree with Keppra. No driving for 6 months. Seizure precautions. Will follow on Wednesday. History of Present Illness Chief complaint: new onset seizure HPI: Ms. Clemens is a 62 year old female with no significant PMH, familial hypercholesterolemia (cholesterol = 1700) who has been having "episodes" since last June, most of which were associated with "not feeling well, abdominal butterflies, weird taste in the mouth", etc, which were suspected to be stroke/TIA and had been placed on medication for those. Episodes included short-term memory loss, inability to speak, repeating the same word again and again, or not being able to understand people or staring into space. However, she was non-responsive for only those few seconds. Yesterday, when patient was at work, she had similar feeling and then she was found to have turned her head to the left, and then had convulsions witnessed by her coworkers. She also bit her tongue during this episode. She lost consciousness (for the first time) and could not be aroused. She was found to have a seizure again in the ER and was given ativan followed by keppra load and placed on keppra 500 bid. She is doing better today, but with muscle aches. Daughters are there at bedside to give the whole history from Jun 2016. No complaints per patient. No fevers, chills. No chest palpitations. No numbness/tingling. Has pain in her muscles after the seizure. Pt is on an SSRI , paroxetine 20 mg. She was found to have 99% occlusion in a prior left carotid study. Past Med Surg Social Fam HX - Past Medical History Medical history: asthma, COPD, diabetes, hyperlipidemia, hypertension, seizures , TIA, other Psychiatric history: anxiety, depression - Past Surgical History Surgical History: knee replacement, other - Social History Smoking Status: Former smoker Packs per day: 1 - 1.5 PPD - Reports quitting 5 years ago Smokeless Tobacco Status: No Alcohol use: none Drug use: none - Family History Sister Race: Family Member Ethnicity: Non- Living Status: Age at : 63 Hx Family Respiratory Disorders: Yes (Pulmonary fibrosis) Brother Race: Family Member Ethnicity: Non- Living Status: Age at : 63 Cause of : HD Hx Family Cardiac Disorders: Yes (HD) Mother Race: Family Member Ethnicity: Non- Living Status: Still Living Hx Family Cardiac Disorders: Yes Hx Family Endocrine Disorder: Yes (DM) Hx Family Medical Disorders: Yes (CVAs) Father Race: Family Member Ethnicity: Non- Living Status: Age at : 52 Cause of : Cancer Hx Family Cardiac Disorders: No Hx Family Respiratory Disorders: No Hx Family Cancer: Yes (Liver, Stomach) Hx Family GI Disorders: Yes (Ulcers) Medications and Allergies ALPRAZolam [Xanax 0.5 MG Tablet] 0.5 mg PO TID 06/26/16 [History] Canagliflozin [Invokana] 100 mg PO DAILY 06/26/16 [History] Esomeprazole Magnesium [Nexium] 40 mg PO DAILY 06/26/16 [History] Lisinopril [Zestril] 10 mg PO DAILY 06/26/16 [History] Loratadine [Claritin] 10 mg PO DAILY 06/26/16 [History] Paroxetine HCl 20 mg PO DAILY 06/26/16 [History] Rosuvastatin [Crestor] 40 mg PO DAILY 06/26/16 [History] Triamterene/HCTZ 37.5/25mg [Dyazide] 1 tab PO DAILY 06/26/16 [History] metFORMIN [Glucophage] 500 mg PO DAILY 06/26/16 [History] Aspirin Enteric Coated [Aspirin EC] 81 mg PO DAILY 07/02/17 [History] Clopidogrel [Plavix] 75 mg PO DAILY 07/02/17 [History] MetroNIDAZOLE [Metrogel] 1 appl TP DAILY 07/02/17 [History] Allergies sulfacetamide [From Sulfamide] Allergy (Verified 03/13/17 21:29) Swelling of the Eye ROS unobtainable: other All Systems: A 10-system review of systems was performed and is negative for pertinent findings except as documented above in the HPI. Physical Examination - Vital Signs Vital Signs: Initial Vital Signs Temp Pulse Resp BP Pulse Ox 98.5 F 107 18 120/74 92 07/02/17 13:15 07/02/17 13:15 07/02/17 13:15 07/02/17 13:15 07/02/17 13:15 Vital Signs - 24 hr 07/02/17 19:24 07/02/17 22:30 07/02/17 22:57 Temperature 100.9 F H Pulse Rate Respiratory Rate 18 Blood Pressure 146/60 O2 Sat by Pulse Oximetry 95 07/03/17 01:31 07/03/17 04:05 07/03/17 07:08 Temperature 99.2 F 98.1 F 97.8 F Pulse Rate 105 92 78 Respiratory Rate 18 18 18 Blood Pressure 105/61 108/69 114/67 O2 Sat by Pulse Oximetry 90 92 92 07/03/17 08:20 07/03/17 11:22 Temperature 98.3 F Pulse Rate 88 Respiratory Rate 18 Blood Pressure 116/77 O2 Sat by Pulse Oximetry 92 97 - Exam Exam: obese patient - Constitutional General appearance: comfortable - Neurologic Sensorimotor examination: intact (except, decreased distally in arms and legs) Detailed motor examination: full strength in all major muscle groups Motor examination - right side: 5/5: deltoids, biceps, triceps, wrist flexion, wrist extension, foley artist, hip flexors, tibialis Anterior, quadriceps, toe extension (EHL), plantarflexion Motor examination - left side: 5/5: deltoids, biceps, triceps, wrist flexion, wrist extension, hip flexors, foley artist, quadriceps, tibialis Anterior, toe extension (EHL), plantarflexion Detailed sensory examination: other (distally decreased) Reflex and gait examination: intact (except gait not tested) Reflexes: Biceps: 2+, Triceps: 2+, Brachioradialis: 2+, Patella: 2+, Achilles: 2 + Mental Status Examination: awake, alert, oriented to person, oriented to place, oriented to time, follows commands appropriately, answers questions appropriately (except, slow to do calculations), no agnosia, no aphasia, no aproxia, makes eye contact, follows simple commands Cranial nerve examination: PERRL (pupils at 3 mm), EOMI, visual hauser intact, corneal reflexes brisk symmetrically, sensory to face intact, mastication intact , no facial asymmetry is present, no dysarthria, hearing is intact symmetrically , soft palate elevates bilaterally upon phonation, gag reflex intact, flexes SCM and trapezius muscles symmetrically with full power, tongue protrudes midline, no atrophy or facial fasiculations present Cerebellar examination: no dysmetria Results - Laboratory Findings CBC and BMP: 07/03/17 04:41 07/03/17 04:41 Abnormal lab findings: Abnormal lab results WBC 15.1 K/mcL (4.3-11.1) H D 07/03/17 04:41 Neutrophils # 11.4 K/mcL (1.6-8.9) H 07/03/17 04:41 Sodium 134 mEq/L (136-145) L 07/03/17 04:41 Potassium 3.3 mEq/L (3.5-4.5) L 07/03/17 04:41 Glucose 165 mg/dL (70-99) H 07/03/17 04:41 POC Glucose 169 (58-89) H 07/02/17 23:00 - Diagnostic Findings Additional findings: Laboratory Results WBC 15.1 K/mcL (4.3-11.1) H D 07/03/17 04:41 RBC 4.52 M/mcL (3.82-4.97) 07/03/17 04:41 Hgb 12.7 g/dL (11.5-15.4) 07/03/17 04:41 Hct 39.0 % (35.3-44.9) 07/03/17 04:41 MCV 86.3 fL (83.0-100.0) 07/03/17 04:41 MCH 28.1 pg (28.0-33.3) 07/03/17 04:41 MCHC 32.6 g/dL (31.6-35.5) 07/03/17 04:41 RDW 13.5 % (11.5-14.5) 07/03/17 04:41 Plt Count 316 K/mcL (140-400) 07/03/17 04:41 MPV 10.5 fL (9.4-12.4) 07/03/17 04:41 Immature Gran % 0.3 % (0-4) 07/03/17 04:41 Seg Neutrophils % 75.4 % 07/03/17 04:41 Lymphocytes % 16.3 % 07/03/17 04:41 Monocytes % 7.3 % 07/03/17 04:41 Eosinophils % 0.1 % 07/03/17 04:41 Basophils % 0.6 % 07/03/17 04:41 Neutrophils # 11.4 K/mcL (1.6-8.9) H 07/03/17 04:41 Lymphocytes # 2.5 K/mcL (0.6-4.6) 07/03/17 04:41 Monocytes # 1.1 K/mcL (0.0-1.3) 07/03/17 04:41 Eosinophils # 0.0 K/mcL (0.0-0.6) 07/03/17 04:41 Basophils # 0.1 K/mcL (0.0-0.2) 07/03/17 04:41 PT 11.4 Seconds (9.4-12.1) 07/03/17 04:41 INR 1.1 07/03/17 04:41 APTT 27.2 Seconds (26.0-36.0) 07/03/17 04:41 Sodium 134 mEq/L (136-145) L 07/03/17 04:41 Potassium 3.3 mEq/L (3.5-4.5) L 07/03/17 04:41 Chloride 102 mEq/L (98-109) 07/03/17 04:41 Carbon Dioxide 25 mEq/L (19-29) 07/03/17 04:41 BUN 12 mg/dL (7-20) 07/03/17 04:41 Creatinine 0.81 mg/dL (0.57-1.11) 07/03/17 04:41 Est GFR ( Amer) > 60 (> 60) 07/03/17 04:41 Est GFR (Non-Af Amer) > 60 (> 60) 07/03/17 04:41 BUN/Creatinine Ratio 15 (6-26) 07/03/17 04:41 Glucose 165 mg/dL (70-99) H 07/03/17 04:41 POC Glucose 169 (58-89) H 07/02/17 23:00 Calculated Osmolality 281 (280-300) 07/03/17 04:41 Calcium 8.8 mg/dL (8.6-10.8) 07/03/17 04:41 Phosphorus 3.7 mg/dL (2.3-4.7) 07/03/17 04:41 Magnesium 2.2 mg/dL (1.6-2.6) 07/03/17 04:41 Triglycerides 101 mg/dL (< 150) 07/03/17 04:41 Cholesterol 157 mg/dL (< 200) 07/03/17 04:41 LDL Cholesterol, Calc 87 mg/dL (0-99) 07/03/17 04:41 VLDL Cholesterol, Calc 20 mg/dL (< 31) 07/03/17 04:41 HDL Cholesterol 50 mg/dL (40-59) 07/03/17 04:41 Cholesterol/HDL Ratio 3.1 (0-4.9) 07/03/17 04:[address] 07/02/17 13:18 IMPRESSION: Small right scalp hematoma. No underlying skull fracture or acute intracranial abnormality. D/ / Simi Wray MD / Simi Wray MD Interpreting Provider: Simi Wray MD Cervical Spine CT 07/02/17 13:48 IMPRESSION: Multilevel degenerative changes in the cervical spine. No acute osseous abnormality. D/ / Simi Wray MD / Simi Wray MD Interpreting Provider: Simi Wray MD Brain MRI 07/02/17 15:07 IMPRESSION: 1. No acute intracranial abnormality or finding to suggest etiology of seizure. 2. Right lateral scalp swelling. D/ / Vishnu Mccoy MD / Vishnu Mccoy MD Interpreting Provider: Vishnu Mccoy MD Consult Discharge Plan - Plan Referrals: Murali Ellis MD [Primary Care Provider] -
[2017-07-03 17:55] LABS: Bilirubin,Urine Negative (Negative); Blood,Urine Negative (Negative); Clarity,Urine Clear (Clear); Color,Urine Yellow (Yellow); Glucose,Urine (UA) >=1000 mg/dL (Normal); Ketones,Urine Negative (Negative); Leukocyte Esterase,Urine Negative (Negative); Nitrite,Urine Negative (Negative); Protein,Urine Negative (Neg-Trace); Specific Gravity,Urine > 1.030 (1.010-1.025); Urobilinogen,Urine Normal (Normal)
[2017-07-03 17:59] LABS: Amphetamine Screen,Urine Negative ng/mL (Cutoff=1000); Barbiturate Screen,Urine Negative ng/mL (Cutoff=200); Benzodiazepines Screen,Urine Negative ng/mL (Cutoff=200); Cannabinoid Screen,Urine Negative ng/mL (Cutoff = 50); Cocaine Screen,Urine Negative ng/mL (Cutoff= 300); Opiate Screen,Urine Positive ng/mL (Cutoff=300); Phencyclidine Screen,Urine Negative ng/mL (Cutoff=25)
[2017-07-04] MEDS: *HR* HYDROcodone/Acet 5/325 mg TABLET PO PRN (03:53)
[2017-07-04 04:20] LABS: Hematocrit 39.4 % (35.3-44.9); Hemoglobin 12.6 g/dL (11.5-15.4); Immature Granulocytes % 0.3 % (0-4); Lymphocytes % 25.2 %; Mean Corpuscular Hemoglobin 27.7 pg (28.0-33.3); Mean Corpuscular Volume 86.6 fL (83.0-100.0); Mean Platelet Volume 10.1 fL (9.4-12.4); Monocytes % 9.4 %; Platelet Count 305 K/mcL (140-400); Red Blood Count 4.55 M/mcL (3.82-4.97); Red Cell Distribution Width 13.7 % (11.5-14.5); Segmented Neutrophils % 61.4 %
[2017-07-04 04:21] LABS: Basophils # 0.1 K/mcL (0.0-0.2); Basophils % 1.3 %; Eosinophils # 0.2 K/mcL (0.0-0.6); Eosinophils % 2.4 %; Lymphocytes # 2.2 K/mcL (0.6-4.6); Monocytes # 0.8 K/mcL (0.0-1.3); Neutrophils # 5.4 K/mcL (1.6-8.9)
[2017-07-04 04:35] LABS: BUN/Creatinine Ratio 18 (6-26); Blood Urea Nitrogen 12 mg/dL (7-20); Calcium 8.7 mg/dL (8.6-10.8); Carbon Dioxide 24 mEq/L (19-29); Chloride 103 mEq/L (98-109); Glucose 111 mg/dL (70-99); Osmolality,Calculated 280 (280-300); Potassium 3.9 mEq/L (3.5-4.5); Sodium 135 mEq/L (136-145); eGFR For African Americans > 60 (> 60); eGFR For Non-African Americans > 60 (> 60)
[2017-07-04] MEDS: Aspirin Enteric Coated 81 MG Tablet PO SCH (08:25)
[2017-07-04] MEDS: METRONIDAZOLE APPL TP SCH (08:26)
[2017-07-04] MEDS: Insulin LISPRO 300 UNITS/3 ML VIAL SQ SCH ×4 (08:26→20:13)
[2017-07-04] MEDS: Loratadine 10 MG TABLET PO SCH (08:26)
[2017-07-04] MEDS: Pantoprazole 40 MG VIAL IVP SCH (08:26)
--- NOTE | 2017-07-04 09:40 | Internal Med Progress Note ---
Date of Encounter: 07/04/17 Time of Encounter: 09:20 - Assessment and plan (1) New onset seizure Current Visit: Yes Status: Acute Assessment and plan: Noted to have new onset generalized seizure with tongue bite, with a repeat episode in the emergency room. Patient also has history of nonspecific episodic neurologic symptoms concerning for seizures-confusion, garbled speech, appeared taste in mouth, not feeling well, expressive aphasia. CT head and MRI brain with and without contrast done in the emergency room showed no acute abnormality, focal mass or bleed. EEG and spinal tap pending. F/ up ESR, CRP, ammonia levels. Neurology f/up appreciated; changed Keppra to oral form; seizure precautions. When necessary IV Ativan for repeat seizures. (2) Carotid arterial disease Current Visit: Yes Status: Chronic Assessment and plan: Patient has history of left ICA 80-99% stenosis versus occlusion on carotid Doppler- occlusion rather than stenosis and previous vascular surgery consult opined this is not surgical.. 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 Continue to monitor. Qualifiers: Laterality: left Qualified Code(s): I77.9 - Disorder of arteries and arterioles, unspecified (3) Diabetes Current Visit: Yes Status: Chronic Assessment and plan: Continue Accu-Chek blood glucose monitoring with basal bolus insulin regimen. Diabetic diet. Qualifiers: Diabetes mellitus type: type 2 Diabetes mellitus complication status: without complication Diabetes mellitus residential insulin use: without watermelon harvesting supervisor use Qualified Code(s): E11.9 - Type 2 diabetes mellitus without complications (4) HTN (hypertension) Current Visit: Yes Status: Chronic Qualifiers: Hypertension type: essential hypertension Qualified Code(s): I10 - Essential (primary) hypertension (5) HLD (hyperlipidemia) Current Visit: Yes Status: Chronic Qualifiers: Hyperlipidemia type: unspecified Qualified Code(s): E78.5 - Hyperlipidemia , unspecified - Subjective Interval history: More alert and awake today; continues ti have generalized bodyaches, slightly better; no further episodes of seizures, confusion, weakness/paresthesias; - Constitutional Vitals: Temp Pulse Resp BP Pulse Ox 97.5 F L 71 18 105/71 98 07/04/17 06:55 07/04/17 06:55 07/04/17 06:55 07/04/17 06:55 07/04/17 06:55 General appearance: Present: A&O X 3, answers questions appropriately - Respiratory Respiratory exam: Present: CTAB. Absent: accessory muscle use, rales, rhonchi, wheezes - Cardiovascular Cardiovascular exam: Present: RRR, +S1, +S2. Absent: diastolic murmur, gallop, rubs, systolic murmur - Extremities Exam Extremities exam: Present: full ROM, warm, radial pulses palpable and symmetrical. Absent: calf tenderness, cyanotic, pedal edema - Neurological Exam Neurological exam: Present: CN II-XII intact, oriented X3, no focal deficits. Absent: pronater drift, facial droop, speech deficit Internal Medicine: Result - Labs CBC & Chem 7: 07/04/17 03:32 07/04/17 03:32 Labs: Short CBC 07/04/17 Range/Units 03:32 WBC 8.8 (4.3-11.1) K/mcL Hgb 12.6 (11.5-15.4) g/dL Hct 39.4 (35.3-44.9) % Plt Count 305 (140-400) K/mcL Neutrophils # 5.4 (1.6-8.9) K/mcL BMP 07/04/17 03:32 Sodium 135 L Potassium 3.9 Chloride 103 Carbon Dioxide 24 BUN 12 Creatinine 0.68 Glucose 111 H Calcium 8.7 Urine 07/03/17 Range/Units 17:30 Urine Color Yellow (Yellow) Urine Clarity Clear (Clear) Urine pH 6.0 (5.0-8.0) pH Units Ur Specific [place] > 1.030 H (1.010-1.025) Urine Protein Negative (Neg-Trace) mg/dL Urine Glucose (UA) >=1000 H (Normal) mg/dL - ABG Interpretation ABG results: PT/INR, D-dimer PT 11.4 Seconds (9.4-12.1) 07/03/17 04:41 - Impressions Impressions Hip/Pelvis X-Ray 07/03/17 08:00 IMPRESSION: No acute osseous abnormality of the pelvis or either hip. Mild symmetric osteoarthritic changes. D/ / Get Barlow MD / Get Barolw MD Interpreting Provider: Get Barlow MD Consult Discharge Plan - Plan Referrals: Murali Ellis MD [Primary Care Provider] -
--- NOTE | 2017-07-04 10:44 | Neurology Progress Note ---
Date of Encounter: 07/04/17 Time of Encounter: 10:42 Assessment and Plan (1) New onset seizure Current Visit: Yes Status: Acute 62-year old woman with 1-year history of fluctuating episodic symptoms, suggestive of seizures, now culminating in convulsive seizures, corroborating with the semiology (with secondary generalization), including the left head turn noted in the EEG video, suggestive of left hemispheric origin, accounting for aphasic spells. Etiology needs to be investigated. LP planned for Wednesday. Needs CSF studies (including fungal studies and CSF for cytology) EEG on Wednesday. Check ESR, CRP, Ammonia Agree with Karen. No driving for 6 months. Seizure precautions. Discussed with family - daughters. Will follow on Wednesday. Subjective Principal diagnosis: seizures Interval history: Pt is seen in follow-up. Doing well today, per daughter. She went to the bathroom by herself. Her thinking is clear. She still has body aches and pain from the tongue bite. states that her mentation is clear. No seizure episodes. No other complaints. Objective - Constitutional Vitals: Temp Pulse Resp BP Pulse Ox 97.5 F L 71 18 105/71 98 07/04/17 06:55 07/04/17 06:55 07/04/17 06:55 07/04/17 06:55 07/04/17 06:55 Vital Signs - 24 hr 07/03/17 11:22 07/03/17 16:30 07/03/17 19:04 Temperature 98.3 F 97.7 F Pulse Rate 88 80 Respiratory Rate 18 18 Blood Pressure 116/77 109/69 O2 Sat by Pulse Oximetry 97 96 95 07/03/17 20:31 07/04/17 00:34 07/04/17 03:39 Temperature 98.9 F 97.8 F 97.7 F Pulse Rate 84 71 81 Respiratory Rate 18 20 18 Blood Pressure 111/64 103/71 123/81 O2 Sat by Pulse Oximetry 93 89 99 07/04/17 06:55 Temperature 97.5 F L Pulse Rate 71 Respiratory Rate 18 Blood Pressure 105/71 O2 Sat by Pulse Oximetry 98 General appearance: Present: cooperative, A&O X 3, no acute distress, answers questions appropriately - Head Head exam: Present: atraumatic, normocephalic Additional comments: healing tongue lacerations on the lateral aspects of the tongue - Neurological Exam Sensorimotor examination: Present: intact (except, decreased distally in arms and legs) Motor Examination: Present: full strength in all major muscle groups Motor examination - right side: 5/5: deltoids, biceps, triceps, wrist flexion, wrist extension, insight director, hip flexors, tibialis Anterior, quadriceps, toe extension (EHL), plantarflexion Motor examination - left side: 5/5: deltoids, biceps, triceps, wrist flexion, wrist extension, hip flexors, insight director, quadriceps, tibialis Anterior, toe extension (EHL), plantarflexion Sensation intact: Present: other (distally decreased) Reflex and gait examination: intact (except gait not tested) Reflexes: Biceps: 2+, Triceps: 2+, Brachioradialis: 2+, Patella: 2+, Achilles: 2 + Mental Status Examination: Present: awake, alert, oriented to person, oriented to place, oriented to time, follows commands appropriately, answers questions appropriately (except, slow to do calculations), no agnosia, no aphasia, no aproxia, makes eye contact, follows simple commands Cranial nerve examination: Present: PERRL (pupils at 3 mm), EOMI, visual hauser intact, corneal reflexes brisk symmetrically, sensory to face intact, mastication intact, no facial asymmetry is present, no dysarthria, hearing is intact symmetrically, soft palate elevates bilaterally upon phonation, gag reflex intact, flexes SCM and trapezius muscles symmetrically with full power, tongue protrudes midline, no atrophy or facial fasiculations present Cerebellar examination: Present: no dysmetria Results - Laboratory Findings CBC and BMP: 07/04/17 03:32 07/04/17 03:32 Abnormal lab findings: Abnormal lab results MCH 27.7 pg (28.0-33.3) L 07/04/17 03:32 Sodium 135 mEq/L (136-145) L 07/04/17 03:32 Glucose 111 mg/dL (70-99) H 07/04/17 03:32 POC Glucose 158 (58-89) H 07/03/17 20:36 Ur Specific [place] > 1.030 (1.010-1.025) H 07/03/17 17:30 Urine Glucose (UA) >=1000 mg/dL (Normal) H 07/03/17 17:30 Urine Opiates Screen Positive ng/mL ([id number]) H 07/03/17 17:30 Consult Discharge Plan - Plan Referrals: Murali Ellis MD [Primary Care Provider] -
--- NOTE | 2017-07-04 12:12 | Electrocardiograph Report ---
[address] [address] Test Date: 2017-07-02 Pat Name: Pallavi Clemens Department: [id number] Room: 2NE17 Gender: F Host/Hostess Ground: EKP : 1955 Requested By: Vishnu Vicente Order Number: [id number] Reading MD: Ghada Rubio Measurements Intervals [place] Rate: 108 P: 38 ID: [id number] QRS: 28 QRSD: 89 T: 41 QT: 341 QTc: 405 Interpretive Statements SINUS TACHYCARDIA WITH OCCASIONAL SUPRAVENTRICULAR PREMATURE COMPLEXES POSSIBLE LEFT ATRIAL ENLARGEMENT NONSPECIFIC ST ABNORMALITIES Electronically Signed On 07-04-2017 12:11:03 EDT by Ghada Rubio
--- NOTE | 2017-07-04 13:06 | Vascular/Endovasc Consult Note ---
Date of Encounter: 07/04/17 Time of Encounter: 13:02 Assessment and Plan (1) Carotid arterial disease Current Visit: Yes Status: Chronic The patient has a documented left internal carotid artery occlusion from angiogram of June 2016. The patient is not a candidate for surgical or endovascular intervention for this chronic occlusion. In addition there is a right vertebral artery occlusion. 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 This is approximately 50%. This lesion does need to be monitored in the future and may be done with CT angiogram of the neck but it is not critical that it be performed at this time. The patient is welcome to follow-up with me in 6 months with an outpatient CT angiogram of the neck for this issue. Qualifiers: Laterality: left Qualified Code(s): I77.9 - Disorder of arteries and arterioles, unspecified (2) Generalized tonic-clonic seizure Current Visit: Yes Status: Acute New onset seizure. Patient is present presently being treated with IV Keppra. Patient will have lumbar puncture for spinal tap tomorrow to complete her workup. EEG is pending. (3) HLD (hyperlipidemia) Current Visit: Yes Status: Chronic Lipid control is critical to minimize cerebrovascular disease. Thus be medically treated. The patient is presently on Crestor Qualifiers: Hyperlipidemia type: unspecified Qualified Code(s): E78.5 - Hyperlipidemia , unspecified - History of Present Illness Consult date: 07/04/17 Consult reason: Carotid artery disease Chief complaint: Seizures History of present illness: Ms. Clemens is a 62 year old female Who was admitted on Wednesday because of a grand mal seizure that occurred at work. The patient was sitting at her desk when she began to feel applied. She then fell and struck her head and then awoke in the emergency room. The seizure was witnessed and the patient had tonic clonic type of activity as well as loss of urinary continence. She is undergoing further neurologic workup. She was initially treated with intravenous Ativan and now is on intravenous Keppra. A lumbar puncture is scheduled for tomorrow. Vascular surgery was asked to see the patient because of the known history of cerebrovascular disease. I had initially seen the patient in June 2016 on an emergency consultation via the emergency room. She had had a carotid duplex scan which suggested an 80-99% left internal carotid artery stenosis with TIA type symptoms. I took the patient to the angiogram suite on June 26, 2016 and performed a formal arch and bilateral carotid artery angiograms. 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 As noted these lesions are appropriate for either open revascularization or endovascular therapy I recommended continued antiplatelet therapy and risk factor reduction with focus on blood pressure and lipid control. I've not seen the patient back in my office as an outpatient since that time. On my visit with the patient today she is now on 2 NE. bed #17. She is accompanied by her daughter who was at the bedside. The patient offers no complaints or neurologic symptoms. The daughter states that she is more alert and awake today than yesterday. The daughter states that she had some mild confusion and persistent and inappropriate answering of questions earlier on this admission. Apparently she had also had a second seizure in the early evening hours of Wednesday. The daughter does inform me that the patient had an episode in February with continued amnestic and expressive aphasia symptoms. The patient was admitted and was seen by neurology here. The patient did go on to seek a second opinion and was seen by a neurologist at [facility] in March(Dr. Ta?). The daughter states an MRI was performed but I do not have access to those results. The patient is tentatively scheduled to follow-up with that neurologist every 3 months and would be due for another appointment later this week. Past Med Surg Social Fam HX - Past Medical History Medical history: asthma, COPD, diabetes, hyperlipidemia, hypertension, seizures , TIA, other Psychiatric history: anxiety, depression - Past Surgical History Surgical History: knee replacement, other (Arch and bilateral carotid artery angiogram June 2016) - Social History Smoking Status: Former smoker Packs per day: 1 - 1.5 PPD - Reports quitting 5 years ago Smokeless Tobacco Status: No Alcohol use: none Drug use: none - Family History Sister Race: Family Member Ethnicity: Non- Living Status: Age at : 63 Hx Family Respiratory Disorders: Yes (Pulmonary fibrosis) Brother Race: Family Member Ethnicity: Non- Living Status: Age at : 63 Cause of : HD Hx Family Cardiac Disorders: Yes (HD) Mother Race: Family Member Ethnicity: Non- Living Status: Still Living Hx Family Cardiac Disorders: Yes Hx Family Endocrine Disorder: Yes (DM) Hx Family Medical Disorders: Yes (CVAs) Father Race: Family Member Ethnicity: Non- Living Status: Age at : 52 Cause of : Cancer Hx Family Cardiac Disorders: No Hx Family Respiratory Disorders: No Hx Family Cancer: Yes (Liver, Stomach) Hx Family GI Disorders: Yes (Ulcers) Medications and Allergies ALPRAZolam [Xanax 0.5 MG Tablet] 0.5 mg PO TID 06/26/16 [History] Canagliflozin [Invokana] 100 mg PO DAILY 06/26/16 [History] Esomeprazole Magnesium [Nexium] 40 mg PO DAILY 06/26/16 [History] Lisinopril [Zestril] 10 mg PO DAILY 06/26/16 [History] Loratadine [Claritin] 10 mg PO DAILY 06/26/16 [History] Paroxetine HCl 20 mg PO DAILY 06/26/16 [History] Rosuvastatin [Crestor] 40 mg PO DAILY 06/26/16 [History] Triamterene/HCTZ 37.5/25mg [Dyazide] 1 tab PO DAILY 06/26/16 [History] metFORMIN [Glucophage] 500 mg PO DAILY 06/26/16 [History] Aspirin Enteric Coated [Aspirin EC] 81 mg PO DAILY 07/02/17 [History] Clopidogrel [Plavix] 75 mg PO DAILY 07/02/17 [History] MetroNIDAZOLE [Metrogel] 1 appl TP DAILY 07/02/17 [History] Allergies sulfacetamide [From Sulfamide] Allergy (Verified 03/13/17 21:29) Swelling of the Eye All Systems Review: A 10-system review of systems was performed and is negative for pertinent findings except as documented above in the HPI. Exam Vital Signs, Last 4 Hours Temp Pulse Resp BP Pulse Ox 07/04/17 11:00 97.9 F 83 18 109/65 95 General: Present: Conversant, No Apparent Distress, Well developed, Well nourished HEENT: Present: Normocephaly, Trachea midline, Pupils equal Neck: Present: Right Carotid bruit. Absent: JVD, Lymphadenopathy, Left Carotid bruit, Midline deformity, Tracheal deviation Cardiac: Present: Reg Rate and Rhythm, Normal S1 and S2, Other (Murmur heard over the aortic valvular position) Lungs: Present: Normal Breath Sounds, No Wheeze, Rales, Rhonchi Neuro: Present: Alert and responsive, No focal deficits noted, Motor nerves grossly intact, Sensory nerves grossly intact, Other (Right handed) Abdomen: Present: Soft, Non-tender Vascular: Present: Other (Patient has bilateral supraclavicular bruits and a right infraclavicular bruit.) Skin: Present: No rashes noted on visualized skin Consult Discharge Plan - Plan Referrals: Murali Ellis MD [Primary Care Provider] -
[2017-07-04] MEDS: levETIRAcetam 250 MG TABLET PO SCH (16:42)
[2017-07-04] MEDS: Acetaminophen 325 MG TABLET PO PRN (17:24)
[2017-07-04] MEDS: Ketorolac 30 MG/ML VIAL IVP PRN (22:40)
[2017-07-05] MEDS: Acetaminophen 325 MG TABLET PO PRN (03:51)
[2017-07-05 05:36] LABS: BUN/Creatinine Ratio 26 (6-26); Blood Urea Nitrogen 20 mg/dL (7-20); Calcium 9.3 mg/dL (8.6-10.8); Carbon Dioxide 26 mEq/L (19-29); Chloride 102 mEq/L (98-109); Glucose 108 mg/dL (70-99); Magnesium 2.1 mg/dL (1.6-2.6); Osmolality,Calculated 287 (280-300); Potassium 4.1 mEq/L (3.5-4.5); Sodium 137 mEq/L (136-145); eGFR For African Americans > 60 (> 60); eGFR For Non-African Americans > 60 (> 60)
[2017-07-05] MEDS: levETIRAcetam 250 MG TABLET PO SCH ×2 (05:37→17:39)
[2017-07-05] MEDS: Loratadine 10 MG TABLET PO SCH (09:06)
[2017-07-05] MEDS: Aspirin Enteric Coated 81 MG Tablet PO SCH (09:06)
[2017-07-05] MEDS: Pantoprazole 40 MG VIAL IVP SCH (09:06)
[2017-07-05] MEDS: Insulin LISPRO 300 UNITS/3 ML VIAL SQ SCH ×2 (09:07→11:57)
[2017-07-05] MEDS: METRONIDAZOLE APPL TP SCH (09:16)
[2017-07-05] MEDS: Ketorolac 30 MG/ML VIAL IVP PRN (11:56)
--- NOTE | 2017-07-05 16:08 | Neurology Progress Note ---
Date of Encounter: 07/05/17 Time of Encounter: 16:06 Assessment and Plan (1) New onset seizure Current Visit: Yes Status: Acute For what ever reason Pallavi has began experiencing recurrent seizures which I believe designates this as epilepsy. In retrospect I now believe that the recurrent episodes of aphasia and speech arrest were likely partial seizures. She was resolved back to her normal cognitive and functional baseline. I do not feel that a lumbar puncture is necessary at this juncture. However due to the focal nature of the seizure I am going to obtain an MRI scan of the brain with contrast. I agree with starting her on Keppra. Seizure precautions should be observed, this includes no driving. She has expressed intent to follow up with her neurologist at [facility] in [place]. Further recommendations regarding the long-term management of her seizures as well as seizure precautions will be deferred to her neurologist. She will be discharged after the MRI scan of the brain with contrast. Subjective Principal diagnosis: seizures Interval history: Chart was reviewed and patient has been seen. Patient seems to be experiencing episodes of partial seizure perhaps with secondary generalization. Initially when I saw her back in February she had a transient episode of aphasia at which time her stroke workup was ensued. This time she had what seemed to be a metallic taste in her mouth followed by what appeared to be a generalized tonic- clonic seizure. She did bite the side of her tongue. Currently she is back to her normal baseline status. She has no complaints at this time other than some soreness in the left thigh. Otherwise her neurologic exam has no focal or lateralized deficits. Objective - Constitutional Vitals: Temp Pulse Resp BP Pulse Ox 97.6 F 63 18 112/72 94 07/05/17 06:55 07/05/17 06:55 07/05/17 06:55 07/05/17 06:55 07/05/17 06:55 General appearance: Present: cooperative, A&O X 3, no acute distress, answers questions appropriately - Neurological Exam Sensorimotor examination: Present: intact (except, decreased distally in arms and legs) Motor Examination: Present: full strength in all major muscle groups Motor examination - left side: 5/5: deltoids, biceps, triceps, wrist flexion, wrist extension, hip flexors, faculty dean, quadriceps, tibialis Anterior, toe extension (EHL), plantarflexion Sensation intact: Present: other (distally decreased) Reflex and gait examination: intact (except gait not tested) Mental Status Examination: Present: awake, alert, oriented to person, oriented to place, oriented to time, follows commands appropriately, answers questions appropriately (except, slow to do calculations), no agnosia, no aphasia, no aproxia, makes eye contact, follows simple commands Cranial nerve examination: Present: PERRL (pupils at 3 mm), EOMI, visual hauser intact, corneal reflexes brisk symmetrically, sensory to face intact, mastication intact, no facial asymmetry is present, no dysarthria, hearing is intact symmetrically, soft palate elevates bilaterally upon phonation, gag reflex intact, flexes SCM and trapezius muscles symmetrically with full power, tongue protrudes midline, no atrophy or facial fasiculations present Cerebellar examination: Present: no dysmetria Additional comments: Cerebral functions-patient is awake alert and oriented to person place and time. She follows commands and answers questions appropriately. There is no agnosia, aphasia, or apraxia. Judgment and abstract thinking are intact. Cranial nerves-pupils are equal and reactive to light and accommodation. Extraocular motility is intact. Sensory to face is intact. Mastication is intact. There is no facial asymmetry. Hearing is intact symmetrically. Soft palate elevates bilaterally upon phonation. Motor exam finds normal strength bulk and tone of both upper extremities, in the right lower extremity. She does have some tenderness in the left hip flexors. She has normal strength of the knee extensors and flexors and normal ability to dorsiflex and plantarflex the left ankle. The left iliopsoas muscle seems to be sore. There is no numbness present however. Sensory exam-light touch and deep touch are globally intact. There is no numbness present, particularly no numbness present in the left leg. Deep tendon reflexes-2/4 of the biceps, triceps, brachioradialis, patellar and Achilles symmetrically. No long track signs are identified. Results - Laboratory Findings CBC and BMP: 07/04/17 03:32 07/05/17 03:34 Abnormal lab findings: Abnormal lab results MCH 27.7 pg (28.0-33.3) L 07/04/17 03:32 ESR 41 mm/hr (0-15) H 07/04/17 12:46 Glucose 108 mg/dL (70-99) H 07/05/17 03:34 POC Glucose 125 (58-89) H 07/04/17 19:33 Ammonia 15 mcmol/L (18-72) L 07/04/17 12:46 C-Reactive Protein 20 mg/L (Less than 5) H 07/04/17 12:46 Ur Specific [place] > 1.030 (1.010-1.025) H 07/03/17 17:30 Urine Glucose (UA) >=1000 mg/dL (Normal) H 07/03/17 17:30 Urine Opiates Screen Positive ng/mL ([place]=[id number]) H 07/03/17 17:30 Consult Discharge Plan - Plan Referrals: Murali Ellis MD [Primary Care Provider] - Alfonzo Dominguez MD [Non-Partnered Physician] - 07/12/17 10:15 am
[2017-07-05 16:16] VITALS: BP 113/59
--- NOTE | 2017-07-05 16:44 | Discharge Summary ---
Date of Encounter: 07/05/17 Time of Encounter: 11:45 - Discharge Diagnosis (1) New onset seizure Priority: Primary Status: Acute (2) Carotid arterial disease Priority: Secondary Status: Chronic Qualifiers: Laterality: left Qualified Code(s): I77.9 - Disorder of arteries and arterioles, unspecified (3) Diabetes Priority: Secondary Status: Chronic Qualifiers: Diabetes mellitus type: type 2 Diabetes mellitus complication status: without complication Diabetes mellitus retirement insulin use: without rat exterminator use Qualified Code(s): E11.9 - Type 2 diabetes mellitus without complications (4) HTN (hypertension) Priority: Secondary Status: Chronic Qualifiers: Hypertension type: essential hypertension Qualified Code(s): I10 - Essential (primary) hypertension (5) HLD (hyperlipidemia) Priority: Secondary Status: Chronic Qualifiers: Hyperlipidemia type: unspecified Qualified Code(s): E78.5 - Hyperlipidemia , unspecified - Discharge Medications Prescriptions: levETIRAcetam [Keppra] 500 mg PO Q12HR #60 tab Home Medications: ALPRAZolam [Xanax 0.5 MG Tablet] 0.5 mg PO TID 06/26/16 [History] Canagliflozin [Invokana] 100 mg PO DAILY 06/26/16 [History] Esomeprazole Magnesium [Nexium] 40 mg PO DAILY 06/26/16 [History] Lisinopril [Zestril] 10 mg PO DAILY 06/26/16 [History] Loratadine [Claritin] 10 mg PO DAILY 06/26/16 [History] Paroxetine HCl 20 mg PO DAILY 06/26/16 [History] Rosuvastatin [Crestor] 40 mg PO DAILY 06/26/16 [History] Triamterene/HCTZ 37.5/25mg [Dyazide] 1 tab PO DAILY 06/26/16 [History] metFORMIN [Glucophage] 500 mg PO DAILY 06/26/16 [History] Aspirin Enteric Coated [Aspirin EC] 81 mg PO DAILY 07/02/17 [History] Clopidogrel [Plavix] 75 mg PO DAILY 07/02/17 [History] MetroNIDAZOLE [Metrogel] 1 appl TP DAILY 07/02/17 [History] levETIRAcetam [Keppra] 500 mg PO Q12HR #60 tab 07/05/17 [Rx] Allergies/Adverse Reactions: Allergies sulfacetamide [From Sulfamide] Allergy (Verified 03/13/17 21:29) Swelling of the Eye Date of admission: 07/05/17 13:51 Primary care physician: Murali Ellis MD Discharging clinician: Bela Haji Anticipated date of discharge: 07/05/17 - Patient Status Disposition: Home Health Service Condition: Good Functional capacity at discharge: uses cane/walker Overall status at discharge: patient is progressing back to baseline - Discharge Instructions Follow Up With: Murali Ellis MD [Primary Care Provider] - Alfonzo Dominguez MD [Non-Partnered Physician] - 07/12/17 10:15 am Additional Instructions: F/up with [facility] in 3-4 weeks - Diet and Activity Activity: other (DO NOT DRIVE or manage heavy machinery, until remains seizure- free for 6 months and cleared by Neurology; ) Diet: diabetic diet, low fat, low cholesterol, low salt diet Hospital course: Ms. Clemens is a 62 year old female with the above medical problems was admitted with complaints of one episode of generalized tonic-clonic seizure with tongue bite and urinary incontinence. She was noted to have sustained a second seizure in the emergency room and has been started on IV Keppra with no episodes of recurrent seizures. CT head, MRI brain with and without contrast done in the emergency room showed no focal abnormality/acute stroke or bleed. She had mild leukocytosis and low-grade temperature at admission, which was likely related to her seizure. She reported generalized body aches during her stay secondary to seizure, controlled with pain medications. She had a brief postictal confusion episode after which she remained alert and oriented during this stay. He assessment and CRP was noted to be mildly elevated. Neurology evaluation and follow-up are completed and at this time, patient is noted to be medically stable for discharge on oral antiepileptics, with outpatient neurology follow- up. She is interested in continuing follow-up with her neurologist at [facility] and is encouraged to keep her appointment. She reported left leg weakness, physical and occupational therapy evaluation was completed and this is likely muscular secondary to her recent seizures, recommended no further therapy. She is currently medically stable for discharge. - Time Spent with Patient Total time spent providing and/or coordinating discharge services: Greater than 30 minutes (45 min) - Constitutional Vitals: Temp Pulse Resp BP Pulse Ox 97.9 F 81 18 113/59 97 07/05/17 16:15 07/05/17 16:15 07/05/17 16:15 07/05/17 16:15 07/05/17 16:15 General appearance: Present: A&O X 3, answers questions appropriately - Respiratory Respiratory exam: Present: CTAB. Absent: accessory muscle use, rales, rhonchi, wheezes - Cardiovascular Cardiovascular exam: Present: RRR, +S1, +S2. Absent: diastolic murmur, gallop, rubs, systolic murmur
--- NOTE | 2017-07-06 12:47 | EEG/EMG/Oth Biometrics Report ---
EEG Procedure Report Date of procedure: 07/06/17 EEG Procedure: Routine EEG Procedure Note: This is a report of a 21 channel bipolar and referential montage EEG on a patient who has experienced an episode of what seems to be partial seizure with secondary generalization. A posterior dominant rhythm consists of mixed moderate to low voltage alpha and theta frequencies. This rhythm is not reactive to eye opening. From the onset of the study there is increased muscle artifact identifiable in the right hemispheric leads. However, there is intermittent slowing in the left temporal lobe region with the intermittent spikes, along with sharp and slow wave complexes. These findings are indicative of cortical neuronal disturbance. There is of drowsiness are identified during the recording is reference by dropout of posterior dominant rhythm in the emergency mixed slow wave and theta wave frequencies anteriorly. The subject does not approach stage II sleep. Hyperventilation is not performed and did not recording. Photic stenosis performed and is producing a symmetric driving response. The EKG reveals normal sinus rhythm at 86 beats per minute. Impressions: This study is abnormal and does reveal evidence of a cortical neuronal disturbance emanating from the left temporal lobe region. This may indeed be primary care sales representative of an epileptic focus. Comment: Etiologies of this interpretation might include vascular, neoplastic, degenerative, postictal, or traumatic. Please correlate clinically.
== END 2017-07-05 18:17 | disposition home health service (06) | DRG 101 ==
LOC: 3BNU 13:14 → EMEROO 13:14 → 2NENU 21:04
PROVIDERS: ADMIT Internal Medicine Endocrinology, Diabetes & Metabolism; ATTEND Internal Medicine

== ENCOUNTER 2020-11-29 09:54 | Inpatient (IN) ==
[2020-11-29] MEDS ORDERED: Azithromycin 500 MG in 0.9 % Sodium Chloride 250 ML IVPB ONE (10:10)
[2020-11-29] MEDS ORDERED: 0.9 % Sodium Chloride 1,000 ML IVC ONE ×2 (10:29→18:15)
[2020-11-29 10:33] LABS: Basophils % 0.4 %; Hematocrit 39.4 % (35.3-44.9); Hemoglobin 12.7 g/dL (11.5-15.4); Immature Granulocytes % 0.4 % (0-4); Lymphocytes # 0.8 K/mcL (0.6-4.6); Lymphocytes % 16.2 %; Mean Corpuscular HGB Conc 32.2 g/dL (31.6-35.5); Mean Platelet Volume 10.1 fL (9.4-12.4); Monocytes # 0.5 K/mcL (0.0-1.3); Monocytes % 9.8 %; Neutrophils # 3.7 K/mcL (1.6-8.9); Platelet Count 276 K/mcL (140-400); Red Blood Count 4.38 M/mcL (3.82-4.97); Red Cell Distribution Width 12.5 % (11.5-14.5); Segmented Neutrophils % 73.2 %
[2020-11-29 10:39] LABS: Prothrombin Time 12.1 Seconds (9.4-12.1)
[2020-11-29 11:16] LABS: Alanine Aminotransferase 21 Units/L (7-52); Albumin 3.5 g/dL (3.5-5.7); Albumin/Globulin Ratio 1.3 (1.1-2.2); Alkaline Phosphatase 67 Units/L (34-104); Aspartate Amino Transferase 27 Units/L (13-39); BUN/Creatinine Ratio 33 (6-26); Bilirubin,Indirect 0.3 mg/dL (0.0-1.0); Bilirubin,Total 0.3 mg/dL (0.3-1.0); Blood Urea Nitrogen 26 mg/dL (8-23); Calcium 8.5 mg/dL (8.6-10.3); Carbon Dioxide 20 mEq/L (23-29); Chloride 100 mEq/L (98-107); Globulin 2.8 g/dL (2.4-3.5); Glucose 141 mg/dL (70-105); Magnesium 2.1 mg/dL (1.6-2.6); Osmolality,Calculated 281 (280-300); Potassium 3.7 mEq/L (3.5-5.1); Sodium 132 mEq/L (136-145); Total Protein 6.3 g/dL (6.4-8.9); Troponin I < 0.03 ng/mL (< 0.04); eGFR For African Americans > 60 (> 60); eGFR For Non-African Americans > 60 (> 60)
[2020-11-29] MEDS ORDERED: Naloxone 0.4 MG/ML INJ IVP PRN (11:47)
[2020-11-29] MEDS ORDERED: Ondansetron 4 MG/2 ML VIAL IVP PRN (11:47)
[2020-11-29] MEDS ORDERED: D5% in Water 1,000 ML IVC PRN (11:49)
[2020-11-29] MEDS ORDERED: Dextrose Gel 15 GM/37.5 ML TUBE PO PRN ×2 (11:49)
[2020-11-29] MEDS ORDERED: *HR* Dextrose 50 % in Water (Vial) 50 ML VIAL IVP PRN (11:49)
[2020-11-29] MEDS ORDERED: Benzonatate 100 MG CAPSULE PO PRN (11:51)
[2020-11-29] MEDS ORDERED: 0.9 % Sodium Chloride 1,000 ML ONE (11:53)
[2020-11-29] MEDS ORDERED: Ondansetron 4 MG/2 ML VIAL ONE (11:53)
[2020-11-29 12:05] LABS: C-Reactive Protein 28 mg/L (Less than 10)
[2020-11-29] MEDS: 0.9 % Sodium Chloride 1,000 ML IVC SCH ×3 (12:05→20:12)
[2020-11-29] MEDS ORDERED: Isovue-370 500 ML BOTTLE IVP ONE (12:34)
[2020-11-29] MEDS ORDERED: 0.9 % Sodium Chloride 500 ML IVC ONE (17:08)
[2020-11-29] MEDS ORDERED: Loratadine 10 MG TABLET PO PRN (17:13)
[2020-11-29] MEDS: Insulin LISPRO 300 UNITS/3 ML VIAL SUBQ SCH (17:15)
[2020-11-29] MEDS: levETIRAcetam 250 MG TABLET PO SCH (20:11)
[2020-11-29] MEDS: *HR* Ticagrelor 90 MG TABLET PO SCH (20:12)
[2020-11-29] MEDS ORDERED: Acetaminophen 325 MG TABLET PO PRN (22:25)
[2020-11-29] MEDS: Acetaminophen 325 MG TABLET PO PRN (22:33)
[2020-11-29] MEDS: Budesonide/Formoterol 160/4.5 1 PUFF INH IH SCH (22:50)
[2020-11-30 03:20] LABS: Basophils % 0.3 %; Hematocrit 36.3 % (35.3-44.9); Hemoglobin 11.7 g/dL (11.5-15.4); Immature Granulocytes % 0.6 % (0-4); Lymphocytes # 0.6 K/mcL (0.6-4.6); Lymphocytes % 16.6 %; Mean Corpuscular HGB Conc 32.2 g/dL (31.6-35.5); Mean Corpuscular Hemoglobin 29.5 pg (28.0-33.3); Mean Corpuscular Volume 91.4 fL (83.0-100.0); Mean Platelet Volume 10.1 fL (9.4-12.4); Monocytes # 0.4 K/mcL (0.0-1.3); Monocytes % 10.8 %; Neutrophils # 2.4 K/mcL (1.6-8.9); Platelet Count 248 K/mcL (140-400); Red Blood Count 3.97 M/mcL (3.82-4.97); Red Cell Distribution Width 12.6 % (11.5-14.5); Segmented Neutrophils % 71.7 %; White Blood Count 3.3 K/mcL (4.3-11.1)
[2020-11-30 03:33] LABS: BUN/Creatinine Ratio 28 (6-26); Blood Urea Nitrogen 20 mg/dL (8-23); Calcium 7.6 mg/dL (8.6-10.3); Carbon Dioxide 20 mEq/L (23-29); Chloride 106 mEq/L (98-107); Glucose 152 mg/dL (70-105); Magnesium 2.2 mg/dL (1.6-2.6); Osmolality,Calculated 284 (280-300); Phosphorous 2.8 mg/dL (2.7-4.5); Potassium 4.2 mEq/L (3.5-5.1); Sodium 134 mEq/L (136-145); eGFR For African Americans > 60 (> 60); eGFR For Non-African Americans > 60 (> 60)
[2020-11-30] MEDS: Budesonide/Formoterol 160/4.5 1 PUFF INH IH SCH ×2 (08:08→19:41)
[2020-11-30] MEDS: Insulin LISPRO 300 UNITS/3 ML VIAL SUBQ SCH ×3 (08:27→17:37)
[2020-11-30] MEDS: Aspirin Enteric Coated 81 MG Tablet PO SCH (08:34)
[2020-11-30] MEDS: *HR* Ticagrelor 90 MG TABLET PO SCH ×2 (08:34→19:37)
[2020-11-30] MEDS: levETIRAcetam 250 MG TABLET PO SCH ×2 (08:35→19:37)
[2020-11-30] MEDS: PARoxetine 20 MG TABLET PO SCH (08:36)
[2020-11-30] MEDS: Metoprolol XL (24 HR) Succ 25 MG TAB.ER.24H PO SCH (08:36)
[2020-11-30] MEDS: Acetaminophen 325 MG TABLET PO PRN (23:21)
[2020-12-01] MEDS: *HR* Enoxaparin 40 MG/0.4 ML SYRINGE SQ SCH (05:22)
[2020-12-01] MEDS: Insulin LISPRO 300 UNITS/3 ML VIAL SUBQ SCH ×3 (08:08→20:11)
[2020-12-01] MEDS: Budesonide/Formoterol 160/4.5 1 PUFF INH IH SCH ×2 (08:33→19:53)
[2020-12-01] MEDS: Metoprolol XL (24 HR) Succ 25 MG TAB.ER.24H PO SCH (09:17)
[2020-12-01] MEDS: PARoxetine 20 MG TABLET PO SCH (09:17)
[2020-12-01] MEDS: Aspirin Enteric Coated 81 MG Tablet PO SCH (09:17)
[2020-12-01] MEDS: *HR* Ticagrelor 90 MG TABLET PO SCH ×2 (09:17→19:45)
[2020-12-01] MEDS: levETIRAcetam 250 MG TABLET PO SCH ×2 (09:17→19:45)
[2020-12-02] MEDS: Melatonin 3 MG TABLET PO SCH ×2 (00:02→20:12)
[2020-12-02] MEDS: *HR* Enoxaparin 40 MG/0.4 ML SYRINGE SQ SCH (05:09)
[2020-12-02 05:33] LABS: Hematocrit 34.2 % (35.3-44.9); Mean Corpuscular HGB Conc 32.2 g/dL (31.6-35.5); Mean Corpuscular Hemoglobin 28.6 pg (28.0-33.3); Mean Corpuscular Volume 89.1 fL (83.0-100.0); Mean Platelet Volume 10.2 fL (9.4-12.4); Platelet Count 314 K/mcL (140-400); Red Blood Count 3.84 M/mcL (3.82-4.97); Red Cell Distribution Width 12.2 % (11.5-14.5)
[2020-12-02 05:34] LABS: White Blood Count 8.9 K/mcL (4.3-11.1)
[2020-12-02 05:52] LABS: BUN/Creatinine Ratio 32 (6-26); Blood Urea Nitrogen 19 mg/dL (8-23); Calcium 8.1 mg/dL (8.6-10.3); Carbon Dioxide 23 mEq/L (23-29); Chloride 106 mEq/L (98-107); Glucose 135 mg/dL (70-105); Osmolality,Calculated 290 (280-300); Phosphorous 3.4 mg/dL (2.7-4.5); Potassium 3.8 mEq/L (3.5-5.1); Sodium 138 mEq/L (136-145); eGFR For African Americans > 60 (> 60); eGFR For Non-African Americans > 60 (> 60)
[2020-12-02] MEDS: Insulin LISPRO 300 UNITS/3 ML VIAL SUBQ SCH ×3 (08:00→17:20)
[2020-12-02] MEDS: Aspirin Enteric Coated 81 MG Tablet PO SCH (08:02)
[2020-12-02] MEDS: Metoprolol XL (24 HR) Succ 25 MG TAB.ER.24H PO SCH (08:02)
[2020-12-02] MEDS: levETIRAcetam 250 MG TABLET PO SCH ×2 (08:02→20:12)
[2020-12-02] MEDS: PARoxetine 20 MG TABLET PO SCH (08:02)
[2020-12-02] MEDS: *HR* Ticagrelor 90 MG TABLET PO SCH ×2 (08:02→20:13)
[2020-12-02] MEDS: Budesonide/Formoterol 160/4.5 1 PUFF INH IH SCH ×2 (08:21→20:36)
[2020-12-03] MEDS: *HR* Enoxaparin 40 MG/0.4 ML SYRINGE SQ SCH (05:25)
[2020-12-03] MEDS: Aspirin Enteric Coated 81 MG Tablet PO SCH (07:42)
[2020-12-03] MEDS: Metoprolol XL (24 HR) Succ 25 MG TAB.ER.24H PO SCH (07:42)
[2020-12-03] MEDS: levETIRAcetam 250 MG TABLET PO SCH (07:42)
[2020-12-03] MEDS: PARoxetine 20 MG TABLET PO SCH (07:42)
[2020-12-03] MEDS: *HR* Ticagrelor 90 MG TABLET PO SCH (07:42)
[2020-12-03] MEDS: Acetaminophen 325 MG TABLET PO PRN (07:53)
[2020-12-03] MEDS: Insulin LISPRO 300 UNITS/3 ML VIAL SUBQ SCH ×3 (07:54→18:23)
[2020-12-03] MEDS: Budesonide/Formoterol 160/4.5 1 PUFF INH IH SCH (10:34)
[2020-12-03 11:52] VITALS: BP 147/82
== END 2020-12-03 18:50 | disposition home health service (06) | DRG 177 ==
LOC: EMEROOARM 09:54 → 2NENU 09:54 → SUATTDRO 11-30 11:38 → 2NENU 11-30 20:15
PROVIDERS: ADMIT Internal Medicine; ATTEND Internal Medicine